=== PATIENT | female | born 1960 | race Caucasian/White ===

== ENCOUNTER → 2017-09-09 10:00 | Outpatient (CLI) | payer OTHER, SELFPAY ==
[2017-09-09 11:18] LABS: Alanine Aminotransferase 34 IU/L (9-52); Albumin 4.3 g/dL (3.5-5.0); Albumin Globulin Ratio 1.6 (1.0-2.8); Alkaline Phosphatase 71 U/L (38-126); Aspartate Aminotransferase 27 IU/L (14-36); BUN Creatinine Ratio 18.3 (6-22); Bilirubin Total 0.4 mg/dL (0.2-1.3); Blood Urea Nitrogen 11 mg/dL (7-17); Calcium 9.6 mg/dL (8.4-10.2); Carbon Dioxide 30 mmol/L (22-32); Chloride 104 mmol/L (98-107); Cholesterol 153 mg/dL (140-199); Estimated Glomerular Filt Rate > 60.0 mL/min (>60); Globulin 2.7 g/dL (1.7-4.1); Glucose 101 mg/dL (70-100); HDL Cholesterol 57 mg/dL (40-60); HEMOLYSIS < 15 (0-50); LDL Cholesterol Calculated 81 mg/dL (<100); Potassium 4.7 mmol/L (3.4-5.1); Sodium 144 mmol/L (137-145); Triglycerides 75 mg/dL (35-150)
== END ==
PROVIDERS: PCP Physician Assistant; Visit Provider Physician Assistant
DX: E78.5 Hyperlipidemia, unspecified (principal); Z01.818 Encounter for other preprocedural examination
CPT/HCPCS: 36415; 80053; 80061

== ENCOUNTER → 2017-09-23 13:25 | Outpatient (CLI) | payer OTHER, SELFPAY ==
--- NOTE | 2017-09-23 13:26 | DI.MRI.S_ITS ---
PROCEDURE: MR BRAIN (IAC) WWO CON INDICATIONS: VERTIGO TECHNIQUE: Noncontrast sagittal T1 spin echo, axial FLAIR, axial gradient echo, axial diffusion and ADC through the brain. Axial thin-slice 3D CISS, coronal TruFISP, axial T1 spin echo with fat saturation through the internal auditory canals. After the administration of contrast, thin slice axial and coronal T1 spin echo with fat saturation through the internal auditory canals, and axial T1 spin echo with fat saturation through the brain. COMPARISON: [facility], MR, BRAIN (IAC) W&WO CONTRAST, 01/19/2013, 8:07. FINDINGS: Image quality: Excellent. Cerebellopontine angles: No cerebellopontine angle masses. Inner ear structures appear normally formed. There is, however, again noted abnormal enhancement in the internal auditory canal along the course of the 7th cranial nerve with reference to the prior study from 01/19/13. The extent of this structure has very slightly enlarged, protruding very slightly into the adjacent CSF space when compared to the 2012 examination. The degree of enhancement has not increased, no new lesion elsewhere is found.. CSF spaces: Ventricles are normal in size and shape. No extra-axial fluid collections. Basal cisterns are patent. Brain: No intracranial bleeds or mass effects. Cano-white matter interface is intact. No abnormal intracranial enhancement. Diffusion weighted images demonstrate no acute ischemic insults. Brainstem appears normal. Normal intravascular flow voids are present. Skull and face: Calvarial marrow signal is normal. Orbits appear normal. Sinuses: Sinuses and mastoids are clear. IMPRESSION: Slight interval enlargement in a presumed acoustic neuroma showing contrast enhancement and slight mass effect protruding from the internal os of the internal auditory canal, but not expanding the internal auditory canal or deviating adjacent vascular or brain/brain stem structures. Dictated by: Steve Corrales M.D. on 09/23/2017 at 14:48 Approved by: Steve Corrales M.D. on 09/23/2017 at 14:53
== END ==
PROVIDERS: PCP Physician Assistant; Visit Provider Physician Assistant
DX: R42 Dizziness and giddiness (principal); R93.0 Abnormal findings on diagnostic imaging of skull and head, not elsewhere classified
CPT/HCPCS: 70553

== ENCOUNTER 2018-04-23 12:14 | Emergency (ER) | payer OTHER, SELFPAY ==
[2018-04-23 12:15] VITALS: BP 172/82; PULSE 73; RESP 16; TEMP 36.8; O2SAT 98; BMI 27.1
--- NOTE | 2018-04-23 12:31 | ED.URI ---
HPI - URI/Sore Throat <Leticia Kennedy PA-C - Last Filed: 04/23/18 18:55> General Chief Complaint: Neuro Symptoms/Deficit Stated Complaint: went to [facility], numbness in lt arm,dry mouth Time Seen by Provider: 04/23/18 12:22 Source: patient Mode of arrival: ambulatory Limitations: no limitations History of Present Illness HPI Narrative: This 58-year-old female states that she was sent in from the walk-in clinic for further evaluation of symptoms that started on Friday. She states that she had eaten a peanut butter and jelly sandwich, and a bit after that was in the car when she felt like her ?throat was closing up?, she states that it was a sensation of congestion and sticking in her throat, like she repeatedly had to swallow and catch her breath to clear it. She states that she has had this intermittently since then. She states that she is not having any trouble with fluids, but somewhat decreased appetite and afraid to eat certain foods due to that sensation. It is not painful. She states that a little while after that, she had some pins and needle sensation down the back of her left shoulder and back of the arm into the wrist area, like a line traveling down the back of her arm. She states that she did not have any pins and needles in the hand or in the front of her arm. She has not had any weakness at all in her face or extremities. She has not had any difficulty with speech. She states that in addition to these symptoms, she had some tingling in her left chest briefly on Friday night that had resolved by the time she awoke. She states that she has never had any chest pain. She states that she does not feel short of breath at all, just the sensation that she needs to take a deep breath to clear her throat sometimes. She has not had any wheezy. She has not had any recent cold symptoms, cough or fever. She has not had any nausea or vomiting. She denies any new pain or swelling in her extremities. She has not noted any rash. No recent exposures or travel. She states that she has had some fatigue this week, but the only persistent symptom has been the sticking sensation intermittently and then the recurrent tingling in the back of her arm today. She states that she does not know of any trauma to the arm or shoulder though she did work out on Friday. She states that she has felt somewhat anxious and that she takes the deep breaths to control her symptoms. She also notes that she had been taking famotidine however her acid reflux symptoms were not well controlled so she took Prilosec for 12 days, and that worked better. She went back to the famotidine on Friday, the day before symptoms started. Related Data Home Medications Medication Instructions Recorded Confirmed atorvastatin 40 mg PO BEDTIME 04/23/18 04/23/18 Previous Rx's Medication Instructions Recorded famotidine 20 mg PO BID #60 tab 07/25/17 varicella-zoster glycoE [id number] 50 mcg IM ONCE #1 each 11/25/17 adj(PF) 50 mcg/0.5 mL IM susp, kit lidocaine HCl [Lidocaine Viscous] 10 ml PO Q6-8H PRN #150 ml 04/23/18 pantoprazole 40 mg PO DAILY #30 tab 04/23/18 Allergies Allergy/AdvReac Type Severity Reaction Status Date / Time Penicillins [PENICILLINS] Allergy Severe RASH AND Verified 04/23/18 11:35 HIVES amoxicillin AdvReac Intermediate RASH Verified 04/23/18 11:35 Review of Systems <Leticia Kennedy PA-C - Last Filed: 04/23/18 18:55> Review of Systems ROS Unobtainable: All systems reviewed & are unremarkable except as noted in HPI and below PFSH <Leticia Kennedy PA-C - Last Filed: 04/23/18 18:55> Medical History Anxiety (Chronic) Cystocele (Chronic 2018) Depression (Chronic) GERD (gastroesophageal reflux disease) (Chronic) Hyperlipidemia (Chronic) Irregular periods/menstrual cycles (Chronic) Colon polyps (Resolved) Surgical History History of arthroplasty (Resolved 05/22/16) Family History Brother ID (myocardial infarction) Father ID (myocardial infarction) Mother Lung disease Sister Ovarian cancer Social History Smoking Status: Former smoker (Quit in 1998) Tobacco: How many years used: 16 second hand exposure: No alcohol intake: current (a couple glasses of white wine about 4 days a week.) substance use type: does not use Family History Brother ID (myocardial infarction) Father ID (myocardial infarction) Mother Lung disease Sister Ovarian cancer Social History Smoking Status: Former smoker Tobacco: How many years used: 16 second hand exposure: No alcohol intake: current (a couple glasses of white wine about 4 days a week.) substance use type: does not use Exam <Leticia Kennedy PA-C - Last Filed: 04/23/18 18:55> Narrative Exam Narrative: GENERAL APPEARANCE: Patient sitting comfortably, in no distress. HEENT: PERRL, EOMI, normal oropharynx. No facial asymmetry NECK/THYROID: Neck supple, submandibular glands are minimally enlarged, symmetric, trachea midline with normal swallow LUNGS: Clear to auscultation bilaterally. HEART: Regular rate and rhythm without murmur, normal S1, S2, no S3 or S4. ABDOMEN: Soft, NT, ND, + BS x 4 quadrants EXTREMITIES: No cyanosis or edema. No calf tenderness NEUROLOGIC: Alert and oriented, normal speech, gait and coordination. DERMATOLOGIC: No exanthem MUSCULOSKELETAL: Mild tenderness at the left superior and lateral shoulder bony prominences as well as over the olecranon. Full range of motion of the left upper extremity. Upper extremity strength 5/5 throughout all galvan bilaterally Initial Vital Signs Initial Vital Signs: Vital Signs Temperature 98.2 F 04/23/18 12:15 Pulse Rate 73 04/23/18 12:15 Respiratory Rate 16 04/23/18 12:15 Blood Pressure 172/82 H 04/23/18 12:15 Pulse Oximetry 98 04/23/18 12:15 <Natasha Phan DO - Last Filed: 04/24/18 08:33> Initial Vital Signs Initial Vital Signs: Vital Signs Temperature 98.2 F 04/23/18 12:15 Pulse Rate 73 04/23/18 12:15 Respiratory Rate 16 04/23/18 12:15 Blood Pressure 172/82 H 04/23/18 12:15 Pulse Oximetry 98 04/23/18 12:15 Scores <Leticia Kennedy PA-C - Last Filed: 04/23/18 18:55> HEART Score Heart Score history: Slightly Suspicious Heart Score EKG: Normal Heart Score Age: 45-64 years old Heart Score risk factors: 1-2 risk factors Heart Score troponin: < or = to normal limit Heart Score Total: 2 Course <Leticia Kennedy PA-C - Last Filed: 04/23/18 18:55> Additional Information: Patient is feeling significantly improved after Protonix and GI cocktail, states that her throat symptoms are resolved. We discussed that her symptoms are a little bit like esophageal spasm, but also seems to have some sticking sensation/dysphagia that may need further workup. There is a correlation with her stopping PPI and onset of symptoms. She will continue Protonix at home along with GI cocktail as needed and agrees to see her PCP next week. She agreed to return if any acutely worsening symptoms again so we can work up further Orders Ordered: Discontinued Medications Al Hydrox/Mg Hydrox/Simethicone 20 ml/ Lidocaine HCl 15 ml 0 ml PO NOW ONE Stop: 04/23/18 12:48 Last Admin: 04/23/18 13:04 Dose: 35 ml Pantoprazole Sodium (Protonix) 40 mg PO NOW ONE Stop: 04/23/18 12:48 Last Admin: 04/23/18 13:04 Dose: 40 mg Vital Signs - 8 hr 04/23/18 12:15 04/23/18 14:16 Temperature 98.2 F Pulse Rate 73 66 Respiratory Rate 16 16 Blood Pressure 172/82 H Blood Pressure [Right Arm] 123/66 Pulse Oximetry 98 99 <Natasha Phan DO - Last Filed: 04/24/18 08:33> Orders Ordered: Discontinued Medications Al Hydrox/Mg Hydrox/Simethicone 20 ml/ Lidocaine HCl 15 ml 0 ml PO NOW ONE Stop: 04/23/18 12:48 Last Admin: 04/23/18 13:04 Dose: 35 ml Pantoprazole Sodium (Protonix) 40 mg PO NOW ONE Stop: 04/23/18 12:48 Last Admin: 04/23/18 13:04 Dose: 40 mg Vital Signs - 8 hr 04/23/18 12:15 04/23/18 14:16 Temperature 98.2 F Pulse Rate 73 66 Respiratory Rate 16 16 Blood Pressure 172/82 H Blood Pressure [Right Arm] 123/66 Pulse Oximetry 98 99 MDM - URI/Sore Throat <Leticia Kennedy PA-C - Last Filed: 04/23/18 18:55> Lab Data Attestation: I reviewed the patient's lab results. Result diagrams: 04/23/18 13:15 04/23/18 13:15 Lab Results 04/23/18 04/23/18 Range/Units 13:15 13:15 WBC 7.0 (4.5-11.0) X10^3/uL RBC 5.16 (4.0-5.2) X10^6/uL Hgb 14.9 (12.0-16.0) g/dL Hct 43.9 (36-46) % MCV 85.0 (80-100) fL MCH 28.9 (26-34) PG MCHC 34.0 (30-36) % RDW 13.2 (11.6-14.8) % Plt Count 220 (150-400) X10^3/uL Neut % (Auto) 61.7 (50-75) % Lymph % (Auto) 29.6 (25-40) % Lamar % (Auto) 6.1 (3-14) % Eos % (Auto) 0.6 L (2-4) % Baso % (Auto) 2.0 (0-2) % Neut # (Auto) 4300 (2422-7070) /uL Lymph # (Auto) 2100 (2576-0026) /uL Lamar # (Auto) 400 (0-900) /uL Eos # (Auto) 0 (0-450) /uL Baso # (Auto) 100 (0-100) /uL Sodium 140 (137-145) mmol/L Potassium 3.9 (3.4-5.1) mmol/L Chloride 104 (98-107) mmol/L Carbon Dioxide 27 (22-32) mmol/L BUN 10 (7-17) mg/dL Creatinine 0.60 (0.52-1.04) mg/dL Estimated GFR > 60.0 (>60) mL/min BUN/Creatinine Ratio 16.7 (6-22) Glucose 88 (70-100) mg/dL Calcium 9.8 (8.4-10.2) mg/dL Total Bilirubin 0.6 (0.2-1.3) mg/dL AST 56 H (14-36) IU/L ALT 67 H (9-52) IU/L Alkaline Phosphatase 75 (38-126) U/L Total Creatine Kinase 393 H (30-135) U/L CK-MB (CK-2) 0.84 (<2.37) ng/mL CK-MB (CK-2) Rel Index 0.2 L (1.5-5.0) % Troponin I < 0.012 (0.01-0.034) ng/mL Total Protein 8.0 (6.3-8.2) g/dL Albumin 4.8 (3.5-5.0) g/dL Globulin 3.2 (1.7-4.1) g/dL Albumin/Globulin Ratio 1.5 (1.0-2.8) Lipase 75 (23-300) U/L Imaging Data Chest x-ray: Radiologist's impression: [address] [address] XRay Report Signed Patient: Barbara García [facility]#: [id number] : 1960Acct:[id number] Age/Sex: 58 / FDate of Service: 04/23/18 Loc: ED Accession Number: [id number] Procedure: XR chest 2V Ordering Provider: Leticia Kennedy P.A-C PROCEDURE: XR CHEST 2V INDICATIONS: atypical chest/throat discomfort TECHNIQUE: 2 views of the chest were acquired. COMPARISON: [facility], CHEST 2 VIEW, 07/05/2011, 13:45. [facility], SHOULDER MINIMUM 2 VIEW LEFT, 07/05/2011, 13:45. FINDINGS: Surgical changes and devices: None. Lungs and pleura: Lungs are clear. No pleural effusions or pneumothorax. Mediastinum: Mediastinal contours are normal. Heart size is normal. Bones and chest wall: 16 mm diameter ill-defined sclerotic focus within the right humeral head Soft tissues appear unremarkable. IMPRESSION: 1. No acute process. 2. 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 Dictated by: Casey Aldridge M.D. on 04/23/2018 at 13:17 Approved by: Casey Aldridge M.D. on 04/23/2018 at 13:18 ECG Data Attestation: I personally reviewed and interpreted this ECG as follows: (Normal sinus rhythm with rate 66, normal axis) <Natasha Botnick, DO - Last Filed: 04/24/18 08:33> Lab Data Lab Results 04/23/18 04/23/18 Range/Units 13:15 13:15 WBC 7.0 (4.5-11.0) X10^3/uL RBC 5.16 (4.0-5.2) X10^6/uL Hgb 14.9 (12.0-16.0) g/dL Hct 43.9 (36-46) % MCV 85.0 (80-100) fL MCH 28.9 (26-34) PG MCHC 34.0 (30-36) % RDW 13.2 (11.6-14.8) % Plt Count 220 (150-400) X10^3/uL Neut % (Auto) 61.7 (50-75) % Lymph % (Auto) 29.6 (25-40) % Lamar % (Auto) 6.1 (3-14) % Eos % (Auto) 0.6 L (2-4) % Baso % (Auto) 2.0 (0-2) % Neut # (Auto) 4300 (0512-8388) /uL Lymph # (Auto) 2100 (2294-4507) /uL Lamar # (Auto) 400 (0-900) /uL Eos # (Auto) 0 (0-450) /uL Baso # (Auto) 100 (0-100) /uL Sodium 140 (137-145) mmol/L Potassium 3.9 (3.4-5.1) mmol/L Chloride 104 (98-107) mmol/L Carbon Dioxide 27 (22-32) mmol/L BUN 10 (7-17) mg/dL Creatinine 0.60 (0.52-1.04) mg/dL Estimated GFR > 60.0 (>60) mL/min BUN/Creatinine Ratio 16.7 (6-22) Glucose 88 (70-100) mg/dL Calcium 9.8 (8.4-10.2) mg/dL Total Bilirubin 0.6 (0.2-1.3) mg/dL AST 56 H (14-36) IU/L ALT 67 H (9-52) IU/L Alkaline Phosphatase 75 (38-126) U/L Total Creatine Kinase 393 H (30-135) U/L CK-MB (CK-2) 0.84 (<2.37) ng/mL CK-MB (CK-2) Rel Index 0.2 L (1.5-5.0) % Troponin I < 0.012 (0.01-0.034) ng/mL Total Protein 8.0 (6.3-8.2) g/dL Albumin 4.8 (3.5-5.0) g/dL Globulin 3.2 (1.7-4.1) g/dL Albumin/Globulin Ratio 1.5 (1.0-2.8) Lipase 75 (23-300) U/L Discharge Plan Departure Patient Disposition: Home Clinical Impression: Esophageal spasm, Paresthesia GERD (gastroesophageal reflux disease) Qualifiers: Esophagitis presence: esophagitis presence not specified Qualified Code(s): K21.9 - Gastro-esophageal reflux disease without esophagitis Discharge Date/Time: 04/23/18 14:30 Interventions: ED Discharge Assessment Last Done: 04/23/18 14:27 Instructions: DI for Gastroesophageal Reflux Disease (GERD), DI for Esophageal Dysphagia Activity Restrictions/Additional Instructions: Your heart studies are normal today, however as we discussed, you should return to the ED immediately for further testing if you have any worsening symptoms again. Since you are feeling better, I have prescribed the same medicine that we gave you here today, pantoprazole, for your heartburn. Please take this once daily 45 min to 1 hr before dinner (it is related to Prilosec that you took previously). I have also prescribed some liquid lidocaine, which you can mix with a dose of liquid Maalox or Mylanta if you have the tightness and difficulty swallowing again to see if that is helpful. Please be sure to follow up with your PCP by next week to assess her progress and determine what other studies you might need, i.e. a swallow study or other evaluation to look for narrowing in your food pipe if you are not better. I suspect the source of the tingling in your arm is musculoskeletal since you have some soreness in the shoulder and elbow joint today, but please follow up on this with your PCP as well and avoid any activities that may exacerbate since you were at the gym on Friday before this started. Prescriptions: New pantoprazole 40 mg tablet,delayed release (DR/EC) 40 mg PO DAILY Qty: 30 RF: 0 lidocaine HCl [Lidocaine Viscous] 2 % solution 10 ml PO Q6-8H PRN (Reason: throat/esophagus tightness) Qty: 150 RF: 0 No Action varicella-zoster [id number] (PF) [Shingrix (PF)] 50 mcg/0.5 mL suspension for reconstitution 50 mcg IM ONCE Qty: 1 RF: 1 famotidine 20 mg tablet 20 mg PO BID Qty: 60 RF: 3 atorvastatin 40 mg tablet 40 mg PO BEDTIME RF: 0 Referrals: aCdence Sears PA-C [Primary Care Provider] - <Natasha Phan DO - Last Filed: 04/24/18 08:33> Cosign ED Attending [place] Attestation: I was immediately available in the department for consultation. Documentation has been reviewed. I agree with assessment and plan.
--- NOTE | 2018-04-23 12:51 | DI.RAD.S_ITS ---
PROCEDURE: XR CHEST 2V INDICATIONS: atypical chest/throat discomfort TECHNIQUE: 2 views of the chest were acquired. COMPARISON: [facility], , CHEST 2 VIEW, 07/05/2011, 13:45. [facility], , SHOULDER MINIMUM 2 VIEW LEFT, 07/05/2011, 13:45. FINDINGS: Surgical changes and devices: None. Lungs and pleura: Lungs are clear. No pleural effusions or pneumothorax. Mediastinum: Mediastinal contours are normal. Heart size is normal. Bones and chest wall: 16 mm diameter ill-defined sclerotic focus within the right humeral head Soft tissues appear unremarkable. IMPRESSION: 1. No acute process. 2. 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 Dictated by: Casey Aldridge M.D. on 04/23/2018 at 13:17 Approved by: Casey Aldridge M.D. on 04/23/2018 at 13:18
[2018-04-23] MEDS: MAG HYDROX/ALUMINUM/SIMETH SUS 20 ML, LIDOCAINE VISCOUS 2% 15 ML PO (13:04)
[2018-04-23] MEDS: PANTOPRAZOLE 20 MG TABLET 40 MG PO (13:04)
[2018-04-23 13:22] LABS: Add Manual Diff / Slide Review NO; Basophils Absolute Auto 100 /uL (0-100); Eosinophils Absolute Auto 0 /uL (0-450); Eosinophils Percent Auto 0.6 % (2-4); Hematocrit 43.9 % (36-46); Hemoglobin 14.9 g/dL (12.0-16.0); Lymphocytes Absolute Auto 2100 /uL (1100-4500); Lymphocytes Percent Auto 29.6 % (25-40); Mean Corpuscular Hemoglobin 28.9 PG (26-34); Monocytes Absolute Auto 400 /uL (0-900); Monocytes Percent Auto 6.1 % (3-14); Neutrophils Absolute Auto 4300 /uL (1500-7000); Neutrophils Percent Auto 61.7 % (50-75); Platelet Count 220 X10^3/uL (150-400); Red Blood Cell Count 5.16 X10^6/uL (4.0-5.2); Red Cell Distribution Width 13.2 % (11.6-14.8)
[2018-04-23 13:34] LABS: Alanine Aminotransferase 67 IU/L (9-52); Albumin 4.8 g/dL (3.5-5.0); Albumin Globulin Ratio 1.5 (1.0-2.8); Alkaline Phosphatase 75 U/L (38-126); Aspartate Aminotransferase 56 IU/L (14-36); BUN Creatinine Ratio 16.7 (6-22); Bilirubin Total 0.6 mg/dL (0.2-1.3); Blood Urea Nitrogen 10 mg/dL (7-17); Calcium 9.8 mg/dL (8.4-10.2); Carbon Dioxide 27 mmol/L (22-32); Chloride 104 mmol/L (98-107); Creatine Kinase 393 U/L (30-135); Estimated Glomerular Filt Rate > 60.0 mL/min (>60); Globulin 3.2 g/dL (1.7-4.1); Glucose 88 mg/dL (70-100); HEMOLYSIS 23 (0-50); Lipase 75 U/L (23-300); Potassium 3.9 mmol/L (3.4-5.1); Sodium 140 mmol/L (137-145)
[2018-04-23 13:46] LABS: Troponin I < 0.012 ng/mL (0.01-0.034)
[2018-04-23 13:49] LABS: CKMB % Relative Index 0.2 % (1.5-5.0); Creatine Kinase MB 0.84 ng/mL (<2.37)
[2018-04-23 14:16] VITALS: BP 123/66; PULSE 66; RESP 16; O2SAT 99
== END 2018-04-23 14:30 | disposition home or self-care (01) ==
PROVIDERS: Emergency Provider Internal Medicine; PCP Physician Assistant
DX: K22.4 Dyskinesia of esophagus (principal); K21.9 Gastro-esophageal reflux disease without esophagitis; R20.2 Paresthesia of skin
CPT/HCPCS: 36415; 71046; 80053; 82550; 82553; 83690; 84484; 85025; 93005; 93010; 99282; 99285; 99291

== ENCOUNTER → 2018-06-15 16:43 | Outpatient (CLI) | payer OTHER, SELFPAY ==
[2018-06-15 18:19] LABS: HEMOLYSIS < 15 (0-50)
[2018-06-15 18:24] LABS: HEMOLYSIS < 15 (0-50); Iron 48 ug/dL (37-170)
[2018-06-15 18:26] LABS: Alanine Aminotransferase 39 IU/L (9-52); Albumin 4.7 g/dL (3.5-5.0); Albumin Globulin Ratio 1.8 (1.0-2.8); Alkaline Phosphatase 73 U/L (38-126); Aspartate Aminotransferase 29 IU/L (14-36); Bilirubin Total 0.5 mg/dL (0.2-1.3); Blood Urea Nitrogen 7 mg/dL (7-17); Calcium 9.8 mg/dL (8.4-10.2); Carbon Dioxide 27 mmol/L (22-32); Chloride 100 mmol/L (98-107); Creatine Kinase 59 U/L (30-135); Estimated Glomerular Filt Rate > 60.0 mL/min (>60); Globulin 2.6 g/dL (1.7-4.1); Glucose 91 mg/dL (70-100); Potassium 3.9 mmol/L (3.4-5.1); Sodium 139 mmol/L (137-145); Total Protein 7.3 g/dL (6.3-8.2)
[2018-06-15 18:35] LABS: Percent Iron Saturation 17 % (15-50); Total Iron Binding Capacity 290 ug/dL (265-497); Transferrin 228 mg/dL (206-381)
[2018-06-15 19:14] LABS: Vitamin B12 869 pg/mL (239-931)
== END ==
PROVIDERS: PCP Physician Assistant; Visit Provider Physician Assistant
DX: R06.00 Dyspnea, unspecified (principal); R07.89 Other chest pain; R53.83 Other fatigue; R74.8 Abnormal levels of other serum enzymes
CPT/HCPCS: 36415; 80053; 82550; 82607; 83540; 83550; 83735

== ENCOUNTER → 2018-07-06 09:37 | Outpatient (CLI) | payer OTHER, SELFPAY ==
--- NOTE | 2018-07-06 09:41 | DI.RAD.S_ITS ---
PROCEDURE: FL BARIUM SWALLOW W SPEECH INDICATIONS: Severe GERD; on PPI, H2 arian, and Sulcrafate no relief TECHNIQUE: Examination was conducted in conjunction with speech pathology per standard protocol. In the lateral projection, filming was performed of the patient swallowing. AP projection filming may also be performed with patient swallowing. COMPARISON: None. FINDINGS: Function: The oral preparatory phase appears normal, with proper containment. The subsequent oral propulsive phase, pharyngeal phase, and esophageal phase of swallowing also appear normal with all proffered substances. No laryngotracheal penetration or aspiration. No pathologic vallecular pooling. Morphology: No cricopharyngeal bar is identified. No cervical esophageal webs. No Zenker's diverticulum. No strictures. IMPRESSION: Normal examination. Please also refer to the dedicated speech therapy report that will be independently generated. Dictated by: Steve Corrales M.D. on 07/06/2018 at 11:20 Approved by: Steve Corrales M.D. on 07/06/2018 at 11:20
--- NOTE | 2018-07-06 11:08 | ST.SWALLOW ---
Care Team Visit Care Team Role Provider Type Other Providers Specialty: Address: Phone: Fax: Email: Ryder Khan MD Family Provider Non-Staff Specialty: Internal Medicine Address: [address] [facility] [address], [address] Email: Cadence Sears PA-C Attending Provider Advanced Environmental Construction Engineer Primary Care Provider Specialty: Medical Address: [address] [place] [address] [address], [place], [address] Email: [email or web address] Modified Barium Swallow Study ENGINEERING PROFESSOR Modified Barium Swallow Study Start: 07/06/18 10:36 Freq: Status: Active Protocol: Document 07/06/18 10:37 MRM (Rec: 07/06/18 11:08 MRM [id number]) Modified Barium Swallow Study Total Time Visit Start Time 10:00 Visit Stop Time 10:30 Total Visit Minutes 30 Referral Referring Physician Cadence Sears PA-C Reason for Referral Dysphagia Setting Setting Outpatient Care Patient Information Identification Type Name Patient History Patient is a 58 year old female referred for an outpatient clinical swallow evaluation by Dr Sears for dysphagia secondary to significant GERD. Patient reported that she began to experience exaggerated GERD symptoms in March 2018 with increased sensation of indegestion, globus sensation and thick secretions. She was prescribed 60mg of dexilant to be taken x1 daily, which she stated, has caused some improvement, but her symptoms are still present. She also initiated a strict GERD diet ( 5 small meals a day, bland foods, sleeping upright, no late night eating, etc), whcih has also caused some relief, but has not totally resolved her symptoms. However, since initiation of this diet, she has lost 30+ pounds (in less than 3 months). She had an endoscopy on April 2018 which revealed esophageal inflammation. She reported that after this endoscopy, she was diagnosed with pneumonia. She has also seen an ENT who performed flexible endoscopy for evaluation of the vocal folds. She reported that the ENT observed irritation/ inflammation of the vocal folds and subsequently recommended a referral for outpatient voice therapy. She reported having difficulty swallowing pills at times and occasional expectoration of food after gargling with salt water. With this increase in GERD symptoms, she has also experienced increased anxiety, worrying that she will choke. No recent neurological changes , no prior difficulties swallowing. Subjective Observations Patient arrived on time for her study with no family present. Able to provide thorough medical history. Patient Positioning Position View Lateral Imaging Lateral View Textures Administered Trials Presented Thin Liquid via Cup Dysphagia Blenderized Textures Mechanical Soft Textures Regular Textures Barium Tablet Oral Phase Source: MBSIMP (TM) (C) Bolus Specific Scoring Grid Lip Closure WFL Tongue Control During Bolus Hold WFL Bolus Prep/Mastication WFL Bolus Transport/Lingual Motion WFL A/P Lingual Propulsion Delay No Oral Residue Minimal Impairment Residue Clearing WFL Nasal Regurgitation No Additional Oral Phase Observations Trace lingual residue observed after trials of thin liquid and puree textures, but resolved with additional swallows. Pharyngeal Phase Source: MBSIMP (TM) (C) Bolus Specific Scoring Grid Delayed Initiation of Pharyngeal Swallow No Soft Palate Elevation WFL Tongue Base Strength/Range of Motion Mild Impairment Residue Along the Tongue Base Yes: Trace residue along base of tongue with thin liquids Clearance of Residue Along Tongue Base WFL Laryngeal Elevation WFL Anterior Hyoid Movement WFL Epiglottic Range of Motion Minimal Impairment Vallecular Residue Yes: Mild vallecular residue observed with thin liquids and puree textures Clearance of Vallecular Residue Minimal Impairment Laryngeal Vestibular Closure WFL Pharyngeal Stripping Wave Minimal Impairment Pharyngeal Contraction Minimal Impairment Posterior Pharyngeal Wall Residue Yes: Trace amount observed with thin liquids Clearance of Posterior Pharyngeal Wall Minimal Impairment Residue Upper Esophageal Sphincter Opening Minimal Impairment Residue in the Pyriform Sinuses Yes: Trace amount observed with thin liquids and puree textures Clearance of Residue in the Pyriform Minimal Impairment Sinuses Esophageal Clearance Upright Position Minimal Impairment Pharyngoesophageal Backflow Observed No A/P View Esophageal Observations Esophageal Function No significant esophageal findings. Please see Radiologist's report for further details. Clinical Impressions Dysphagia Type Mild oropharyngeal dysphagia Findings Patient presents with mild oropharyngeal dysphagia secondary to mildly reduced epiglottic inversion with mildly reduced pharygneal stripping wave and mildly reduced UES opening, allowing mild buildup of pharyngeal residue in valleculae, along posterior pharyngeal wall and in pyriform sinuses. Able to resolve with additional dry swallows or trials of more solid textures such as fruit and/or daysi cracker. Trials presented: Thin liquid via cup in single and consecutive sips, puree texture, mixed fruit, regular daysi cracker, barium tablet. No penetration, no aspiration observed throughout study. Patient able to tolerate mixed fruit, regular daysi cracker and solid barium tablet in water without difficulty. Observed mild residue along lingual surface, in the valleculae, along the posterior pharynegeal wall and in the pyriform sinsues after trials of thin liquids and puree textures. However, able to clear with additional dry swallows or trials of more solid textures. Residue along oropharyngeal structures suspected due to texture of barium as well as mildly reduced strength. Rehabilitation Potential Excellent Patient Appropriate for Therapy Yes: Outpatient voice therapy and dysphagia therapy Recommendations Diet Liquids Order Thin Diet Order Regular Medication Recommendation As Tolerated Comments Able to tolerate whole in thin liquid, but also educated regarding carriers Aspiration Precautions Recommended Precautions Upright at 90 Degrees Small Bites/Sips Effortful Swallow Treatment Plan Therapy Recommendations Outpatient Speech Therapy Base of Tongue Exercises Compensatory Strategy Education GERD/Vocal Hygiene Education Recommended Referrals Primary Care Physician Compensatory Strategies Recommendations Double Swallow Small Bites and Sips Alternate Liquids/Solids Short Term Goals Patient will attend outpatient speech therapy targeting mild oropharyngeal dysphagia to improve base of tongue strength for reduced lingual residue and improved epiglottic inversion to reduce vallecular residue, as well as pharyngeal contraction exercises to improve pharyngeal clearance. Patient will attent outpatient voice therapy, per ENT recommendation, to address reduced vocal quality secondary to GERD. Concrete Pouring Supervisor Goals Patient will tolerate the safest, least restrictive diet without overt s/s of aspiration. Patient will improve in vocal quality following participation in outpatient speech therapy. Placement Recommendation After Discharge Home
== END ==
PROVIDERS: Family Provider Internal Medicine Gastroenterology; PCP Physician Assistant; Visit Provider Physician Assistant
DX: K21.9 Gastro-esophageal reflux disease without esophagitis (principal); R13.10 Dysphagia, unspecified
CPT/HCPCS: 74230; 92611

== ENCOUNTER → 2018-07-16 09:56 | Outpatient (CLI) | payer OTHER, SELFPAY ==
--- NOTE | 2018-07-16 14:31 | DIET.PN ---
Met for initial nutrition consultation. Is here because of unintentional wt loss; pt states r/t GERD and not being able to eat. Is very anxious w/many questions. Has been getting information from internet. States GERD, asthma and anxiety all flared up at once 3 months ago. Current diet: severely limited- yesterday ate 4 shrimp and some quinoa for lunch and again for dinner. Avoids anything with a pH <6. DX: unintentional wt loss, GERD HX: Anxiety, panic attacks Ht: 63 Wt 3 mo ago: 158# Today: 124# BMI: 22 Meds include: Buspirone HCL, Lorazepam, Dexilant Assessment: Very anxious woman. I believe this plays a big part in her GI discomfort and difficulty breathing, which she states is asthma. Has limited her diet to the point of being inadequate in energy, many vitamins and minerals. Has lost 6% wt in 3 months. Intervention: Reviewed food lists to avoid - foods that cause increase GI acid production and foods that may irritate GI/esophagus. Provided list of foods she can eat, as well as some menus to help guide choices. Provided education on stress relief and deep breathing with emphasis on breathing OUT slowly. Provided education on the connection between mind and GI tract. Plan: Use sample menus as guide. Eat 3 small meals and 2-3 snacks daily. Incorperate some high protein, high coleen foods. Is scheduled to see a GI specialist on 07/21. Will f/u after that.
== END ==
PROVIDERS: Family Provider Internal Medicine Gastroenterology; PCP Physician Assistant; Visit Provider Physician Assistant
DX: K21.9 Gastro-esophageal reflux disease without esophagitis (principal); R63.4 Abnormal weight loss
CPT/HCPCS: 97802

== ENCOUNTER → 2018-08-28 09:18 | Outpatient (CLI) | payer OTHER, SELFPAY ==
[2018-08-28 11:06] LABS: Cholesterol 228 mg/dL (140-199); HDL Cholesterol 40 mg/dL (40-60); LDL Cholesterol Calculated 166 mg/dL (<100); Triglycerides 110 mg/dL (35-150)
[2018-08-28 11:09] LABS: High Sensitivity CRP - Cardiac 0.8 mg/L (1.0-3.0)
[2018-08-28 11:21] LABS: Free T4, Direct Thyroxine 1.11 ng/dL (0.78-2.19)
[2018-08-28 11:36] LABS: Cancer Antigen 125 22 U/mL (0-35)
[2018-08-30 12:44] LABS: Homocysteine 5.7 umol/L (< 10.4)
[2018-09-01 15:30] LABS: Triiodothyronine T3 Reverse 18 ng/dL (8-25)
== END ==
PROVIDERS: PCP Physician Assistant; Visit Provider Obstetrics & Gynecology
DX: R63.4 Abnormal weight loss (principal); E78.5 Hyperlipidemia, unspecified; Z51.81 Encounter for therapeutic drug level monitoring
CPT/HCPCS: 36415; 80061; 82306; 83090; 84439; 84482; 86140; 86304

== ENCOUNTER 2018-09-04 13:30 | Outpatient (RCR) | payer OTHER, SELFPAY ==
--- NOTE | 2018-07-31 15:47 | ST.OPIE ---
Provider Information Visit Care Team Role Provider Type Cadence Sears PA-C Attending Provider Advanced Destaticizer Feeder Primary Care Provider Specialty: Medical Address: [address] [place] [address], [id number] Email: [email or web address] Speech-Language Pathology Initial Evaluation TABLE FILLER Clinical Instructor Line Start: 07/31/18 12:34 Freq: Status: Active Protocol: Document 07/31/18 15:32 LNK (Rec: 07/31/18 15:33 LNK [id number]) Clinical Instructor Signature Clinical Instructor Clinical Instructor Yes: Melissa Joseph, PhD , [facility]-TABLE FILLER TABLE FILLER Clinical Swallow Evaluation Start: 07/31/18 12:34 Freq: Status: Active Protocol: Document 07/31/18 12:35 MG (Rec: 07/31/18 13:00 MG [id number]) Clinical Swallow Evaluation Session Time Visit Start Time 11:30 Visit Stop Time 12:30 Total Visit Minutes 60 Visit Information Plan of Care Dates 07/31/18-10/31/18 Insurance Information [facility] Referral Referring Physician Dr. Sears Reason for Referral GERD Setting Assessment Location Outpatient Care Visit Type Note Type Initial Evaluation Next Note Type Next Note Type Treatment Note Patient Information Identification Type Name History Barbara García is a 58 year old female referred for an outpatient clinical swallow evaluation by Dr Sears for dysphagia secondary to significant GERD. Barbara reported that she began to experience GERD symptoms in March 2018 with increased sensation of indegestion, globus sensation and thick secretions. Barbara currently takes 60mg of Dexilant x2 daily, which she stated on June 23, 2018. Barbara is also on a strict GERD diet (5 small meals a day, bland foods, sleeping upright, no late night eating, etc). Barbara has reportedly lost 30+ pounds in 3 months. She had an endoscopy on April 2018 which revealed esophageal inflammation. She has also seen an ENT who performed flexible endoscopy for evaluation of the vocal folds. Barbara reported that the ENT observed irritation/ inflammation of the vocal folds and subsequently recommended a referral for outpatient voice therapy. With this increase in GERD symptoms, she has experienced increased anxiety, worrying that she will choke. Barbara reported that she did not begin to have swallowing problems until she started having GERD symptoms. Evaluation Liquids Trialed Thin Solids Trialed Puree Dysphagia Mechanical Regular Administration Type Cup Single Sip Cup Consecutive Sips Self-Feeding Oral Impairment Mildly Impaired Oral Strategies Upright at 90 degrees Double Swallow Controlled Bite/Sip Size Alternate Liquids/Solids Oral Phase Comments Per MBSS: Trace lingual residue observed after trials of thin liquid and puree textures, but resolved with additional swallows. Pharyngeal Impairment Mildly Impaired Pharyngeal Strategies Sitting Upright (90 deg) Double Swallow Effortful Swallow Small Bites and Sips Alternate Liquids/Solids Pharyngeal Phase Comments Per MBSS: Mild vallecular residue observed on thin liquids and pureed textures. Epiglottic ROM was noted to be minimally impaired as well. Findings Dysphagia Type Mild oropharyngeal dysphagia Rehabilitation Potential Good Impressions Per MBSS: Patient presents with mild oropharyngeal dysphagia secondary to mildly reduced epiglottic inversion with mildly reduced pharygneal stripping wave and mildly reduced UES opening, allowing mild buildup of pharyngeal residue in valleculae, along posterior pharyngeal wall and in pyriform sinuses. Able to resolve with additional dry swallows or trials of more solid textures such as fruit and/or daysi cracker. No penetraion or aspiration occured throughout study. Student TABLE FILLER spent time reviewing MBSS results with Barbara. Student TABLE FILLER went over HEP which included the following exercises for dysphagia treatment: betsy, effortful swallow, and base of tongue exercises. Barbara was in agreement with the program and student TABLE FILLER observed her doing exercises in treatment to make sure she was following the steps correctly. Student TABLE FILLER provided education around the swallowing mechanism, GERD vs LPR, safe swallow strategies, and the affects of everything on the voice. Barbara mentioned complaints of her voice quality and that it has changed since she started developing GERD. Student TABLE FILLER reviewed a vocal hygiene program with Barbara and it appeared that Barbara follows a lot of the guidelines provided (e.g., keep hydrated, talk softer, vocal breaks). Student TABLE FILLER walked Barbara through deep belly breathing in order to improve respiratory support while speaking as Barbara noted that she runs out of air when talking. Student TABLE FILLER encouraged Barbara to continue deep belly breathing exercises along with HEP for dysphagia. Barbara appears motivated to follow through with the program. Barbara would benefit from dysphagia and voice therapy in order to reduce globus sensations and improve vocal quality. Diet Recommendations Liquids Order Thin Diet Order Regular Medication Recommendations As Tolerated Additional Dietary Needs Controlled Sips Aspiration Precautions Recommended Precautions Upright at 90 Degrees Alternate Liquids/Solids Frequent Rest Periods Small Bites/Sips Effortful Swallow Double Swallow Additional Precautions Betsy and base of tongue exercises Treatment Plan Placement Recommendations after Home Discharge Appropriate for Therapy Yes Therapy Recommendations Barbara should receive ST in dysphagia and voice due to noted mild oropharyngeal dysphagia from MBSS performed on 07/06/18 and complaints of voice and irritation noted via ENT. Dysphagia Goals Patient will tolerate the least restrictive diet without showing overt s/sx of aspiration. Patient will report improved in vocal quality directly related to vocal hygeine program follow through and voice therapy strategies.
--- NOTE | 2018-07-31 15:48 | ST.OPPOC ---
Care Team Visit Care Team Role Provider Type Cadence Sears PA-C Attending Provider Advanced Brown Stock Washer Primary Care Provider Address: [address] [place] [address], [id number] Speech Pathology Plan of Care BLUNGER MACHINE OPERATOR Clinical Instructor Line Start: 07/31/18 12:34 Freq: Status: Active Protocol: Document 07/31/18 15:32 LNK (Rec: 07/31/18 15:33 LNK [id number]) Clinical Instructor Signature Clinical Instructor Clinical Instructor Yes: Melissa Joseph, PhD , CCC-BLUNGER MACHINE OPERATOR Speech Pathology Plan of Care Plan of Care Dates 07/31/18-10/31/18 Rehabilitation Potential Good Please Sign and Return: I have reviewed this Plan of Care and certify that the skilled therapy services above are required to meet the patient?s needs. Physician Signature Date Printed Name and Credentials Clinical Instructor Signature Printed Name and Credentials
--- NOTE | 2018-09-04 16:16 | ST.OPTN ---
Care Team Visit Care Team Role Provider Type Cadence Sears PA-C Attending Provider Advanced Supervisor Cemetery Workers Primary Care Provider Address: [address] [place] [address], [id number] VP SITE Treatment Note VP SITE Clinical Instructor Line Start: 07/31/18 12:34 Freq: Status: Active Protocol: Document 07/31/18 15:32 LNK (Rec: 07/31/18 15:33 LNK [id number]) Clinical Instructor Signature Clinical Instructor Clinical Instructor Yes: Melissa Joseph, PhD , [facility]-VP SITE VP SITE Treatment Note Start: 09/04/18 15:26 Freq: Status: Active Protocol: Document 09/04/18 15:33 LNK (Rec: 09/04/18 16:12 LNK [email or web address]) Speech Pathology Treatment Note Session Time Visit Start Time 01:30 Visit Stop Time 14:30 Total Visit Minutes 60 Visit Information Visit Number Plan of Care Dates 07/25/18-10/25/18 Setting Treatment Setting Outpatient Care Visit Type Note Type Treatment Note General Information General Information Barbara García is a 58 year old female referred for an outpatient clinical swallow evaluation on 07/25/[address] Sears for dysphagia secondary to significant GERD. Brabara reported that she began to experience GERD symptoms in March 2018 with increased sensation of indigestion, globus sensation and thick secretions. Dysphagia and voice therapies were recommended. Barbara is seen today for the first session since her assessment to review her HEP and to make modifications as indicated. Subjective Identification Type Name Identification Reconciled With Intake Sheet Chief Complaint(s) Other Additional Areas of Concern GERD- related swallowing/ burping/voice Rehab Expectation/Goals: Patient Goals Be able to control her GERD/ voice Patient Knowledge/Awareness of VP SITE Role Good in Treatment Patient/Caregiver Compliance with Home Excellent Exercise Program Objective Short Term Goals Improved swallow function via swallowing exercises to improve linguapharyngeal strength and increase swallowing safety. Improved vocal quality secondary to GERD diet and lanryngopharyngeal exercises. Underwriter Solicitation Director Goals Reduction in GERD-related symptoms: globus, burping, fatigue in throat area Treatment Activities Reviewed Barbara's evaluation report with Barbara and discussed her HEP. She noted that she has been doing her HEP daily with minimal change in her symptoms. She noted that her swallowing and voice are not the problem; however her GERD and sense of globus and tension remain the same as when she was initially assessed. Review of s/sx related to her anxiety, globus sensation, history of GERD and hx of pneumonia all withing the past 6 months. She reports that she has now lost~40 pounds in 6 months, unintentionally. Additionally, she reported that her GI physician called her yesterday re: abdominal imaging recently completed. Her physician is scheduled to see her on Friday09/07/18 to discuss those results. Reviewed the laryngopharyngeal and gastroesophageal anatomy and then reviewed the diagnoses of laryngopharyngeal reflux (LPR) vs gastroesophageal reflux (GERD) . I noted that her sense of tightness/globus could be the result of LPR as opposed to GERD. She has not has any Ph tests to confirm or rule out LPR. Recommended she be referred to ENT at either [facility] (Dr. Magdalena West, ENT, Department of Otolaryngology) or at [facility] (Dr. Higgins, ENT or Dr Ocampo, ENT, Department of Otolaryngology) for a Ph test for LPR. Assessment Patient Response to Treatment Excellent Assessment of Improvement In reviewing Barbara's ST assessments and reports it appears that the difficulty she is experiencing is possibly driven by her anxiety , which increases her GI response and thereby contributes to acidity within the laryngopharyngeal area, creating tightness and a sensation of globus. As a result of the tightness, her anxiety increases. Of note, while Barbara was in the session (60 minutes), she was burping approximately every 10-15 seconds. She reports an increase in muscular tension in her neck, followed by a burp, which eases the tension. I recommended that she discuss this burping with her physician/GI specialist. At this point continued ST services are not indicated as Barbara's concerns appear to be GI and/or anxiety related. This was discussed with Barbara, who agreed. As her medical treatment evolves, she may contact this clinic again for ST services. Will discharge at this time. Patient/Caregiver Understanding Excellent Plan Amount of Therapy Recommended No Further Therapy Frequency of Treatment No Further Therapy Therapy Recommendations Discharge from Speech Therapy
--- NOTE | 2018-09-04 16:19 | ST.OPDS ---
Care Team Visit Care Team Role Provider Type Cadence Sears PA-C Attending Provider Advanced Forensic Dna Analyst Primary Care Provider Address: [address] [place] [address], [address] DELIVERY TRUCK DRIVER Treatment Note DELIVERY TRUCK DRIVER Clinical Instructor Line Start: 07/31/18 12:34 Freq: Status: Active Protocol: Document 07/31/18 15:32 LNK (Rec: 07/31/18 15:33 LNK [id number]) Clinical Instructor Signature Clinical Instructor Clinical Instructor Yes: Melissa Joseph, PhD , [facility]-DELIVERY TRUCK DRIVER DELIVERY TRUCK DRIVER Treatment Note Start: 09/04/18 15:26 Freq: Status: Active Protocol: Document 09/04/18 16:18 LNK (Rec: 09/04/18 16:19 LNK [email or web address]) Speech Pathology Treatment Note Session Time Visit Start Time 01:30 Visit Stop Time 14:30 Setting Treatment Setting Outpatient Care Visit Type Note Type Discharge Summary General Information General Information Barbara García is a 58 year old female referred for an outpatient clinical swallow evaluation on 07/25/[address] Sears for dysphagia secondary to significant GERD. Barbara reported that she began to experience GERD symptoms in March 2018 with increased sensation of indigestion, globus sensation and thick secretions. Dysphagia and voice therapies were recommended. Barbara is seen today for the first session since her assessment to review her HEP and to make modifications as indicated. Objective Treatment Activities Reviewed Barbara's evaluation report with Barbara and discussed her HEP. She noted that she has been doing her HEP daily with minimal change in her symptoms. She noted that her swallowing and voice are not the problem; however her GERD and sense of globus and tension remain the same as when she was initially assessed. Review of s/sx related to her anxiety, globus sensation, history of GERD and hx of pneumonia all withing the past 6 months. She reports that she has now lost~40 pounds in 6 months, unintentionally. Additionally, she reported that her GI physician called her yesterday re: abdominal imaging recently completed. Her physician is scheduled to see her on Friday09/07/18 to discuss those results. Reviewed the laryngopharyngeal and gastroesophageal anatomy and then reviewed the diagnoses of laryngopharyngeal reflux (LPR) vs gastroesophageal reflux (GERD) . I noted that her sense of tightness/globus could be the result of LPR as opposed to GERD. She has not has any Ph tests to confirm or rule out LPR. Recommended she be referred to ENT at either [facility] (Dr. Magdalena West, ENT, Department of Otolaryngology) or at [facility] (Dr. Higgins, ENT or Dr Ocampo, ENT, Department of Otolaryngology) for a Ph test for LPR. Assessment Assessment of Improvement In reviewing Barbara's ST assessments and reports it appears that the difficulty she is experiencing is possibly driven by her anxiety , which increases her GI response and thereby contributes to acidity within the laryngopharyngeal area, creating tightness and a sensation of globus. As a result of the tightness, her anxiety increases. Of note, while Barbara was in the session (60 minutes), she was burping approximately every 10-15 seconds. She reports an increase in muscular tension in her neck, followed by a burp, which eases the tension. I recommended that she discuss this burping with her physician/GI specialist. At this point continued ST services are not indicated as Barbara's concerns appear to be GI and/or anxiety related. This was discussed with Barbara, who agreed. As her medical treatment evolves, she may contact this clinic again for ST services. Will discharge at this time. Plan Amount of Therapy Recommended No Further Therapy Frequency of Treatment No Further Therapy Therapy Recommendations Discharge from Speech Therapy
== END 2018-09-17 09:30 | disposition home or self-care (01) ==
LOC: SP 13:30
PROVIDERS: PCP Physician Assistant; Visit Provider Physician Assistant
DX: K21.9 Gastro-esophageal reflux disease without esophagitis (principal)
CPT/HCPCS: 92507; 92610

== ENCOUNTER → 2018-09-21 13:05 | Outpatient (CLI) | payer OTHER, SELFPAY ==
--- NOTE | 2018-09-21 13:07 | DIET.PN ---
Dietary Progress Note Assessment: f/u since June appt 124#, now 115#, pt has doubled food intake, is seeing counselor and learning center instructor as support. GI doc put pt on low FODMAP (and GF/DF) diet 2w ago for total of 6w. Pt is following diet, not seeing benefits or wt gain yet. HT: started 158# in Mar WT: 115# down 9 pounds from 2 mo ago. BMI: 20.2 Mariajose Munoz on is learning center instructor, gave pt these supps: takes pro powder supp 2 scoops 1-2x/d (4 weeks) takes Spectrazyme digestive enzyme with every meal Mag Citrate at night Omega3 glutamine I feel these are beneficial and won't hurt pt moving forward. Also: Benefiber prebiotic med for GERD dexilant in May 2018, working c GI doc to ramp down as tolerated. Pt is having difficulty with smells- things too strong, now eating 5 meals per day but feels its a chore, desires a meal plan for what to eat. Pt looking into CBD to reduce anxiety and help c appetite. Describes GERD as feeling like something is stuck in her throat, not heartburn. Interventions: Educated pt on low-FODMAP foods, why we do this, and when to stop. Provided Low-FODMAP meal guide. Discussed reintroduction of FODMAP categories with printed protocol from [facility]. Reassured pt concerns, encouraged added olive oil to meals, more frequent avocado (within fodmap), and other higher calorie foods, even if in small quantities to support weight maintenance or gain. Monitoring/Evaluations: Pt will call to schedule f/u c RD if having trouble c reintroduction protocol or to create plan once low-FODMAP diet is complete if needed. RD encouraged pt to contact her PCP for workup if wt drops under 110#.
== END ==
PROVIDERS: PCP Physician Assistant; Visit Provider Physician Assistant
DX: K21.9 Gastro-esophageal reflux disease without esophagitis (principal); R63.4 Abnormal weight loss
CPT/HCPCS: 97802

== ENCOUNTER 2018-09-24 09:04 | Emergency (ER) | payer OTHER, SELFPAY ==
[2018-09-24 09:30] VITALS: BP 120/70; PULSE 81; RESP 20; TEMP 36.9; O2SAT 100; BMI 20.3
[2018-09-24 10:00] VITALS: BP 126/65; PULSE 75; RESP 19; O2SAT 98
--- NOTE | 2018-09-24 10:17 | ED.ABDPAIN ---
HPI - Abdominal Pain General Chief Complaint: Urogenital-Female Stated Complaint: pressure on anus Time Seen by Provider: 09/24/18 10:17 Source: patient Mode of arrival: ambulatory Limitations: no limitations History of Present Illness HPI narrative: Patient is a 58-year-old female who presents with pressure in her rectum ongoing for least 1 month. She has been having regular bowel movements, no abdominal pain no nausea vomiting or sweats. However she is having extreme pain in her rectum unable to sit down. She does have hemorrhoids but they are not bleeding. MD complaint: abdominal pain Related Data Home Medications Medication Instructions Recorded Confirmed nortriptyline 10 mg capsule 10 mg PO BEDTIME 08/28/18 09/24/18 Previous Rx's Medication Instructions Recorded varicella-zoster glycoE [id number] 50 mcg IM ONCE #1 each 11/25/17 adj(PF) 50 mcg/0.5 mL IM susp, kit albuterol sulfate HFA 90 2 puff INHALATION Q4-6H PRN #18 05/26/18 mcg/actuation aerosol inhaler gram dexlansoprazole 60 mg 60 mg PO BID #60 cap 07/16/18 capsule,biphase delayed release prednisone 20 mg PO DAILY #5 tab 09/24/18 Allergies Allergy/AdvReac Type Severity Reaction Status Date / Time Penicillins [PENICILLINS] Allergy Severe RASH AND Verified 06/24/18 15:36 HIVES amoxicillin AdvReac Intermediate RASH Verified 06/24/18 15:36 epinephrine AdvReac Intermediate Anxiety Verified 06/24/18 15:36 attack Review of Systems Review of Systems GENERAL: Denies chills, fatigue, malaise, fever, sweats, travel HEENT: Denies sinus pain, ear pain, sore throat, difficulty swallowing, neck pain RESPIRATORY: Denies dyspnea, cough, wheezing, hemoptysis, sputum. CARDIOVASCULAR: Denies chest pain, palpitations, orthopnea, edema GASTROINTESTINAL: See HPI : Denies dysuria, frequency, incontinence, hematuria, urinary retention, flank pain. MUSCULOSKELETAL: Denies weakness, joint pain, or bony pain SKIN: No rash, no erythema, no pruritus NEUROLOGIC: Denies weakness, dizziness, headache, numbness, change in speech, confusion PSYCHIATRIC: No concerning psychosocial issues. 12 point review of systems is negative except for those stated above and HPI [facility] Medical History Anxiety (Chronic) Cystocele (Chronic 2018) Depression (Chronic) GERD (gastroesophageal reflux disease) (Chronic) Hyperlipidemia (Chronic) Irregular periods/menstrual cycles (Chronic) Colon polyps (Resolved) Surgical History History of arthroplasty (Resolved 05/22/16) Family History Brother [place] (myocardial infarction) Father [place] (myocardial infarction) Mother Lung disease Sister Ovarian cancer Social History Smoking Status: Former smoker Tobacco: How many years used: 16 second hand exposure: No alcohol intake: current substance use type: does not use Family History Brother [place] (myocardial infarction) Father [place] (myocardial infarction) Mother Lung disease Sister Ovarian cancer Social History Smoking Status: Former smoker Tobacco: How many years used: 16 second hand exposure: No alcohol intake: current substance use type: does not use Exam Initial Vital Signs Initial Vital Signs: Vital Signs Temperature 98.4 F 09/24/18 09:30 Pulse Rate 81 09/24/18 09:30 Respiratory Rate 20 09/24/18 09:30 Blood Pressure 120/70 09/24/18 09:30 Pulse Oximetry 100 09/24/18 09:30 GENERAL: Well-appearing, well-nourished and in no acute distress. HEENT: Head atraumatic,EOMI, pupils reactive, face symmetric, moist mucous membranes CARDIOVASCULAR: Regular rate and rhythm without murmurs, rubs or gallops. RESPIRATORY: Breath sounds equal bilaterally, no wheezes rales or rhonchi. ABDOMEN: Soft, nontender. Normoactive bowel sounds all 4 quadrants. No guarding or rebound. RECTAL: External hemorrhoids nonthrombosed no bleeding extreme tenderness about 6 o'clock position no rectocele. EXTREMITIES: Normal range of motion, no clubbing or edema. Neurovascularly intact NEUROLOGICAL: Alert and oriented x4.Normal gait and speech. Cranial nerves II through XII grossly intact. SKIN: Warm, dry, no laceration, no petechiae, no rashes or lesions. Course Orders Ordered: ED Orders 09/24/18 10:35 Complete Blood Count AUTO DIFF Stat Comprehensive Metabolic Panel Stat Lipase Stat 09/24/18 11:12 CT abdomen pelvis w con Stat Discontinued Medications Ketorolac Tromethamine (Toradol) 30 mg IV NOW ONE Stop: 09/24/18 11:40 Last Admin: 09/24/18 11:42 Dose: 30 mg Vital Signs - 8 hr 09/24/18 09:30 09/24/18 10:00 09/24/18 11:00 Temperature 98.4 F Pulse Rate 81 75 71 Respiratory Rate 20 19 20 Blood Pressure 120/70 Blood Pressure [Left Arm] 126/65 107/92 H Pulse Oximetry 100 98 99 09/24/18 11:55 09/24/18 13:30 Temperature Pulse Rate 71 76 Respiratory Rate 18 17 Blood Pressure Blood Pressure [Left Arm] 124/73 114/66 Pulse Oximetry 98 98 MDM - Abdominal Pain Lab Data Attestation: I reviewed the patient's lab results. Result diagrams: 09/24/18 10:35 09/24/18 10:35 Lab Results 09/24/18 09/24/18 Range/Units 10:35 10:35 WBC 6.2 (4.5-11.0) X10^3/uL RBC 5.12 (4.0-5.2) X10^6/uL Hgb 14.5 (12.0-16.0) g/dL Hct 43.6 (36-46) % MCV 85.1 (80-100) fL MCH 28.3 (26-34) PG MCHC 33.3 (30-36) % RDW 14.1 (11.6-14.8) % Plt Count 203 (150-400) X10^3/uL Neut % (Auto) 56.5 (50-75) % Lymph % (Auto) 36.9 (25-40) % [place] % (Auto) 6.0 (3-14) % Eos % (Auto) 0.4 L (2-4) % Baso % (Auto) 0.2 (0-2) % Neut # (Auto) 3500 (0598-2587) /uL Lymph # (Auto) 2300 (6160-9478) /uL [place] # (Auto) 400 (0-900) /uL Eos # (Auto) 0 (0-450) /uL Baso # (Auto) 0 (0-100) /uL Sodium 144 (137-145) mmol/L Potassium 3.7 (3.4-5.1) mmol/L Chloride 106 (98-107) mmol/L Carbon Dioxide 28 (22-32) mmol/L BUN 12 (7-17) mg/dL Creatinine 0.50 L (0.52-1.04) mg/dL Estimated GFR > 60.0 (>60) mL/min BUN/Creatinine Ratio 24.0 H (6-22) Glucose 121 H (70-100) mg/dL Calcium 9.4 (8.4-10.2) mg/dL Total Bilirubin 0.3 (0.2-1.3) mg/dL AST 19 (14-36) IU/L ALT 25 (9-52) IU/L Alkaline Phosphatase 60 (38-126) U/L Total Protein 7.0 (6.3-8.2) g/dL Albumin 4.3 (3.5-5.0) g/dL Globulin 2.7 (1.7-4.1) g/dL Albumin/Globulin Ratio 1.6 (1.0-2.8) Lipase 84 (23-300) U/L Point of care testing: Urine Dip Bedside Urine Glucose Negative Bedside Urine Bilirubin - Negative Bedside Urine Ketone - Negative Urine Specific [place] 1.015 Bedside Urine Occult Blood - Negative Bedside Urine pH 7.5 Bedside Urine Protein - Negative Bedside Urine Urobilinogen - Negative Bedside Urine Nitrite - Negative Bedside Urine Leukocytes - Negative Esterase Imaging Data CT scan - abdomen: Radiologist's impression: PROCEDURE: CT ABDOMEN PELVIS W CON INDICATIONS: severe rectal pain. ? abscess TECHNIQUE: After the administration of oral and intravenous contrast, 5 mm thick sections acquired from the diaphragms to the symphysis. 5 mm thick coronal and sagittal reformats were performed. For radiation dose reduction, the following was used: automated exposure control, adjustment of mA and/or kV according to patient size. COMPARISON: [facility], , ABDOMEN COMPLETE, 12/12/2006, 11:34. FINDINGS: Image quality: Excellent. ABDOMEN: Lung bases: Lingular opacities likely scars or atelectasis. Heart size is normal. There are bilateral breast prostheses. Solid organs: A 1.5 indeterminate hypodensity is noted in the anterior segment of the right hepatic lobe, demonstrating subtle peripheral enhancement, most likely a hemangioma. Hypodensity adjacent to the falciform ligament is likely secondary to focal fat. Liver is normal in size and enhancement. Gallbladder is normal. Biliary system is non-dilated. Pancreas enhances normally. Spleen is normal in size and enhancement. No adrenal nodules. Kidneys are normal in size and enhancement, without hydronephrosis. Peritoneum and bowel: There is oral contrast within the rectum. There is a filling defects in the rectum, which is most likely caused by artifacts. There is a large amount of stool in colon. Stomach, small bowel, and colon loops are normal in caliber and wall thickness. No free fluid or air. Nodes and vessels: No retroperitoneal or mesenteric adenopathy. Aorta and inferior vena cava are normal in caliber. Miscellaneous: No ventral hernias. PELVIS: Genitourinary: Bladder wall thickness is normal. Miscellaneous: No inguinal hernias or adenopathy. Bones: No suspicious bony lesions. No vertebral body compression fractures. IMPRESSION: 1. No evidence for perirectal abscess. 2. Filling defect in rectum are probably caused artifacts, but polypoid lesions cannot be excluded. Recommend correlation with findings on endoscopy. 3. A 1.5 cm indeterminate hypodensity liver demonstrates subtle peripheral enhancement, most likely a hepatic hemangioma. If clinically indicated, ultrasound may be helpful for followup. No significant discrepancy with the assistant store manager operations radiology preliminary report. Dictated by: Devika Do M.D. on 09/24/2018 at 13:05 Approved by: Devika Do M.D. on 09/24/2018 at 13:34 MDM Narrative Medical decision making narrative: Patient received Toradol for pain seem to help a lot. I spoke with Radiology is no abscess found may be some inflammation. She cannot take NSAIDs. Discussed with her possible low-dose steroids see if it helps with her pain. She has a lightly she is post be scheduled for colonoscopy that has not yet been scheduled. At this time this is been on for number of weeks she is not septic. She definitely has pain in her rectum knot in her pelvic vaginal area. Discharge Plan Departure Patient Disposition: Home Clinical Impression: Pain, rectal Discharge Date/Time: 09/24/18 14:15 Interventions: ED Discharge Assessment Last Done: 09/24/18 14:15 Instructions: DI for Colitis Activity Restrictions/Additional Instructions: *You have been diagnosed with rectal pain *What to do: At this time there is no absolute cause of erectile pain you do have some mild inflammation. At this time I do not believe we need to need antibiotics. You will likely need further evaluation including colonoscopy *Continue to take medications as directed Prednisone 20 mg once a day for 5 days start today--> SENT TO [facility] *Follow up with your primary care provider in 2-3 days, follow-up with your GI doctor for colonoscopy *Return to ER if you should have increased pain fevers bloody stools or any new, worsening or concerning symptoms Prescriptions: New prednisone 20 mg tablet 20 mg PO DAILY Qty: 5 RF: 0 No Action albuterol sulfate 90 mcg/actuation HFA aerosol inhaler 2 puff INHALATION Q4-6H PRN (Reason: shortness of breath or wheezing) Qty: 18 RF: 1 varicella-zoster [id number] (PF) [Shingrix (PF)] 50 mcg/0.5 mL suspension for reconstitution 50 mcg IM ONCE Qty: 1 RF: 1 dexlansoprazole 60 mg capsule,biphase delayed releas 60 mg PO BID Qty: 60 RF: 3 nortriptyline 10 mg capsule 10 mg PO BEDTIME RF: 0 Referrals: Cadence Sears PA-C [Primary Care Provider] -
--- NOTE | 2018-09-24 10:37 | ED_ITS ---
HPI - Abdominal Pain General Chief Complaint: Urogenital-Female Stated Complaint: pressure on anus Time Seen by Provider: 09/24/18 10:17 Source: patient Mode of arrival: ambulatory Limitations: no limitations History of Present Illness HPI narrative: Patient is a 58-year-old female who presents with pressure in her rectum ongoing for least 1 month. She has been having regular bowel movements, no abdominal pain no nausea vomiting or sweats. However she is having extreme pain in her rectum unable to sit down. She does have hemorrhoids but they are not bleeding. MD complaint: abdominal pain Related Data Home Medications Medication Instructions Recorded Confirmed nortriptyline 10 mg capsule 10 mg PO BEDTIME 08/28/18 09/24/18 Previous Rx's Medication Instructions Recorded varicella-zoster glycoE [id number]-AS01B 50 mcg IM ONCE #1 each 11/25/17 adj(PF) 50 mcg/0.5 mL IM susp, kit albuterol sulfate HFA 90 2 puff INHALATION Q4-6H PRN #18 05/26/18 mcg/actuation aerosol inhaler gram dexlansoprazole 60 mg 60 mg PO BID #60 cap 07/16/18 capsule,biphase delayed release prednisone 20 mg PO DAILY #5 tab 09/24/18 Allergies Allergy/AdvReac Type Severity Reaction Status Date / Time Penicillins [PENICILLINS] Allergy Severe RASH AND Verified 06/24/18 15:36 HIVES amoxicillin AdvReac Intermediate RASH Verified 06/24/18 15:36 epinephrine AdvReac Intermediate Anxiety Verified 06/24/18 15:36 attack Review of Systems Review of Systems GENERAL: Denies chills, fatigue, malaise, fever, sweats, travel HEENT: Denies sinus pain, ear pain, sore throat, difficulty swallowing, neck pain RESPIRATORY: Denies dyspnea, cough, wheezing, hemoptysis, sputum. CARDIOVASCULAR: Denies chest pain, palpitations, orthopnea, edema GASTROINTESTINAL: See HPI : Denies dysuria, frequency, incontinence, hematuria, urinary retention, flank pain. MUSCULOSKELETAL: Denies weakness, joint pain, or bony pain SKIN: No rash, no erythema, no pruritus NEUROLOGIC: Denies weakness, dizziness, headache, numbness, change in speech, confusion PSYCHIATRIC: No concerning psychosocial issues. 12 point review of systems is negative except for those stated above and HPI [facility] Medical History Anxiety (Chronic) Cystocele (Chronic 2018) Depression (Chronic) GERD (gastroesophageal reflux disease) (Chronic) Hyperlipidemia (Chronic) Irregular periods/menstrual cycles (Chronic) Colon polyps (Resolved) Surgical History History of arthroplasty (Resolved 05/22/16) Family History Brother [place] (myocardial infarction) Father [place] (myocardial infarction) Mother Lung disease Sister Ovarian cancer Social History Smoking Status: Former smoker Tobacco: How many years used: 16 second hand exposure: No alcohol intake: current substance use type: does not use Family History Brother [place] (myocardial infarction) Father [place] (myocardial infarction) Mother Lung disease Sister Ovarian cancer Social History Smoking Status: Former smoker Tobacco: How many years used: 16 second hand exposure: No alcohol intake: current substance use type: does not use Exam Initial Vital Signs Initial Vital Signs: Vital Signs Temperature 98.4 F 09/24/18 09:30 Pulse Rate 81 09/24/18 09:30 Respiratory Rate 20 09/24/18 09:30 Blood Pressure 120/70 09/24/18 09:30 Pulse Oximetry 100 09/24/18 09:30 GENERAL: Well-appearing, well-nourished and in no acute distress. HEENT: Head atraumatic,EOMI, pupils reactive, face symmetric, moist mucous membranes CARDIOVASCULAR: Regular rate and rhythm without murmurs, rubs or gallops. RESPIRATORY: Breath sounds equal bilaterally, no wheezes rales or rhonchi. ABDOMEN: Soft, nontender. Normoactive bowel sounds all 4 quadrants. No guardi ng or rebound. RECTAL: External hemorrhoids nonthrombosed no bleeding extreme tenderness about 6 o'clock position no rectocele. EXTREMITIES: Normal range of motion, no clubbing or edema. Neurovascularly intact NEUROLOGICAL: Alert and oriented x4.Normal gait and speech. Cranial nerves II through XII grossly intact. SKIN: Warm, dry, no laceration, no petechiae, no rashes or lesions. Course Orders Ordered: ED Orders 09/24/18 10:35 Complete Blood Count AUTO DIFF Stat Comprehensive Metabolic Panel Stat Lipase Stat 09/24/18 11:12 CT abdomen pelvis w con Stat Discontinued Medications Ketorolac Tromethamine (Toradol) 30 mg IV NOW ONE Stop: 09/24/18 11:40 Last Admin: 09/24/18 11:42 Dose: 30 mg Vital Signs - 8 hr 09/24/18 09:30 09/24/18 10:00 09/24/18 11:00 Temperature 98.4 F Pulse Rate 81 75 71 Respiratory Rate 20 19 20 Blood Pressure 120/70 Blood Pressure [Left Arm] 126/65 107/92 H Pulse Oximetry 100 98 99 09/24/18 11:55 09/24/18 13:30 Temperature Pulse Rate 71 76 Respiratory Rate 18 17 Blood Pressure Blood Pressure [Left Arm] 124/73 114/66 Pulse Oximetry 98 98 MDM - Abdominal Pain Lab Data Attestation: I reviewed the patient's lab results. Result diagrams: 09/24/18 10:35 09/24/18 10:35 Lab Results 09/24/18 09/24/18 Range/Units 10:35 10:35 WBC 6.2 (4.5-11.0) X10^3/uL RBC 5.12 (4.0-5.2) X10^6/uL Hgb 14.5 (12.0-16.0) g/dL Hct 43.6 (36-46) % MCV 85.1 (80-100) fL MCH 28.3 (26-34) PG MCHC 33.3 (30-36) % RDW 14.1 (11.6-14.8) % Plt Count 203 (150-400) X10^3/uL Neut % (Auto) 56.5 (50-75) % Lymph % (Auto) 36.9 (25-40) % [place] % (Auto) 6.0 (3-14) % Eos % (Auto) 0.4 L (2-4) % Baso % (Auto) 0.2 (0-2) % Neut # (Auto) 3500 (4230-0187) /uL Lymph # (Auto) 2300 (9666-0914) /uL [place] # (Auto) 400 (0-900) /uL Eos # (Auto) 0 (0-450) /uL Baso # (Auto) 0 (0-100) /uL Sodium 144 (137-145) mmol/L Potassium 3.7 (3.4-5.1) mmol/L Chloride 106 (98-107) mmol/L Carbon Dioxide 28 (22-32) mmol/L BUN 12 (7-17) mg/dL Creatinine 0.50 L (0.52-1.04) mg/dL Estimated GFR > 60.0 (>60) mL/min BUN/Creatinine Ratio 24.0 H (6-22) Glucose 121 H (70-100) mg/dL Calcium 9.4 (8.4-10.2) mg/dL Total Bilirubin 0.3 (0.2-1.3) mg/dL AST 19 (14-36) IU/L ALT 25 (9-52) IU/L Alkaline Phosphatase 60 (38-126) U/L Total Protein 7.0 (6.3-8.2) g/dL Albumin 4.3 (3.5-5.0) g/dL Globulin 2.7 (1.7-4.1) g/dL Albumin/Globulin Ratio 1.6 (1.0-2.8) Lipase 84 (23-300) U/L Point of care testing: Urine Dip Bedside Urine Glucose Negative Bedside Urine Bilirubin - Negative Bedside Urine Ketone - Negative Urine Specific [place] 1.015 Bedside Urine Occult Blood - Negative Bedside Urine pH 7.5 Bedside Urine Protein - Negative Bedside Urine Urobilinogen - Negative Bedside Urine Nitrite - Negative Bedside Urine Leukocytes - Negative Esterase Imaging Data CT scan - abdomen: Radiologist's impression: PROCEDURE: CT ABDOMEN PELVIS W CON INDICATIONS: severe rectal pain. ? abscess TECHNIQUE: After the administration of oral and intravenous contrast, 5 mm thick sections acquired from the diaphragms to the symphysis. 5 mm thick coronal and sagittal reformats were performed. For radiation dose reduction, the following was used: automated exposure control, adjustment of mA and/or kV according to patient size. COMPARISON: [facility], , ABDOMEN COMPLETE, 12/12/2006, 11:34. FINDINGS: Image quality: Excellent. ABDOMEN: Lung bases: Lingular opacities likely scars or atelectasis. Heart size is normal. There are bilateral breast prostheses. Solid organs: A 1.5 indeterminate hypodensity is noted in the anterior segment of the right hepatic lobe, demonstrating subtle peripheral enhancement, most likely a hemangioma. Hypodensity adjacent to the falciform ligament is likely secondary to focal fat. Liver is normal in size and enhancement. Gallbladder is normal. Biliary system is non-dilated. Pancreas enhances normally. Spleen is normal in size and enhancement. No adrenal nodules. Kidneys are normal in size and enhancement, without hydronephrosis. Peritoneum and bowel: There is oral contrast within the rectum. There is a filling defects in the rectum, which is most likely caused by artifacts. There is a large amount of stool in colon. Stomach, small bowel, and colon loops are normal in caliber and wall thickness. No free fluid or air. Nodes and vessels: No retroperitoneal or mesenteric adenopathy. Aorta and inferior vena cava are normal in caliber. Miscellaneous: No ventral hernias. PELVIS: Genitourinary: Bladder wall thickness is normal. Miscellaneous: No inguinal hernias or adenopathy. Bones: No suspicious bony lesions. No vertebral body compression fractures. IMPRESSION: 1. No evidence for perirectal abscess. 2. Filling defect in rectum are probably caused artifacts, but polypoid lesions cannot be excluded. Recommend correlation with findings on endoscopy. 3. A 1.5 cm indeterminate hypodensity liver demonstrates subtle peripheral enhancement, most likely a hepatic hemangioma. If clinically indicated, ultrasound may be helpful for followup. No significant discrepancy with the paramedic instructor radiology preliminary report. Dictated by: Devika Do M.D. on 09/24/2018 at 13:05 Approved by: Devika Do M.D. on 09/24/2018 at 13:34 MDM Narrative Medical decision making narrative: Patient received Toradol for pain seem to help a lot. I spoke with Radiology is no abscess found may be some inflammation. She cannot take NSAIDs. Discussed with her possible low-dose steroids see if it helps with her pain. She has a lightly she is post be scheduled for colonoscopy that has not yet been scheduled. At this time this is been on for number of weeks she is not septic. She definitely has pain in her rectum knot in her pelvic vaginal area. Discharge Plan Departure Patient Disposition: Home Clinical Impression: Pain, rectal Discharge Date/Time: 09/24/18 14:15 Interventions: ED Discharge Assessment Last Done: 09/24/18 14:15 Instructions: DI for Colitis Activity Restrictions/Additional Instructions: *You have been diagnosed with rectal pain *What to do: At this time there is no absolute cause of erectile pain you do have some mild inflammation. At this time I do not believe we need to need antibiotics. You will likely need further evaluation including colonoscopy *Continue to take medications as directed Prednisone 20 mg once a day for 5 days start today--> SENT TO [email or web address] *Follow up with your primary care provider in 2-3 days, follow-up with your GI doctor for colonoscopy *Return to ER if you should have increased pain fevers bloody stools or any new, worsening or concerning symptoms Prescriptions: New prednisone 20 mg tablet 20 mg PO DAILY Qty: 5 RF: 0 No Action albuterol sulfate 90 mcg/actuation HFA aerosol inhaler 2 puff INHALATION Q4-6H PRN (Reason: shortness of breath or wheezing) Qty: 18 RF: 1 varicella-zoster [id number] (PF) [Shingrix (PF)] 50 mcg/0.5 mL suspension for reconstitution 50 mcg IM ONCE Qty: 1 RF: 1 dexlansoprazole 60 mg capsule,biphase delayed releas 60 mg PO BID Qty: 60 RF: 3 nortriptyline 10 mg capsule 10 mg PO BEDTIME RF: 0 Referrals: Cadence Sears PA-C [Primary Care Provider] -
[2018-09-24 10:50] LABS: Add Manual Diff / Slide Review NO; Basophils Absolute Auto 0 /uL (0-100); Basophils Percent Auto 0.2 % (0-2); Eosinophils Absolute Auto 0 /uL (0-450); Eosinophils Percent Auto 0.4 % (2-4); Hematocrit 43.6 % (36-46); Hemoglobin 14.5 g/dL (12.0-16.0); Lymphocytes Absolute Auto 2300 /uL (1100-4500); Lymphocytes Percent Auto 36.9 % (25-40); Mean Corpuscular HGB Conc 33.3 % (30-36); Mean Corpuscular Hemoglobin 28.3 PG (26-34); Mean Corpuscular Volume 85.1 fL (80-100); Monocytes Absolute Auto 400 /uL (0-900); Neutrophils Absolute Auto 3500 /uL (1500-7000); Neutrophils Percent Auto 56.5 % (50-75); Platelet Count 203 X10^3/uL (150-400); Red Blood Cell Count 5.12 X10^6/uL (4.0-5.2); Red Cell Distribution Width 14.1 % (11.6-14.8); White Blood Cell Count 6.2 X10^3/uL (4.5-11.0)
[2018-09-24 10:55] LABS: Alanine Aminotransferase 25 IU/L (9-52); Albumin 4.3 g/dL (3.5-5.0); Albumin Globulin Ratio 1.6 (1.0-2.8); Alkaline Phosphatase 60 U/L (38-126); Aspartate Aminotransferase 19 IU/L (14-36); Bilirubin Total 0.3 mg/dL (0.2-1.3); Blood Urea Nitrogen 12 mg/dL (7-17); Calcium 9.4 mg/dL (8.4-10.2); Carbon Dioxide 28 mmol/L (22-32); Chloride 106 mmol/L (98-107); Estimated Glomerular Filt Rate > 60.0 mL/min (>60); Globulin 2.7 g/dL (1.7-4.1); Glucose 121 mg/dL (70-100); HEMOLYSIS < 15 (0-50); Lipase 84 U/L (23-300); Potassium 3.7 mmol/L (3.4-5.1); Sodium 144 mmol/L (137-145)
[2018-09-24 11:00] VITALS: BP 107/92; PULSE 71; RESP 20; O2SAT 99
--- NOTE | 2018-09-24 11:12 | DI.CT.S_ITS ---
PROCEDURE: CT ABDOMEN PELVIS W CON INDICATIONS: severe rectal pain. ? abscess TECHNIQUE: After the administration of oral and intravenous contrast, 5 mm thick sections acquired from the diaphragms to the symphysis. 5 mm thick coronal and sagittal reformats were performed. For radiation dose reduction, the following was used: automated exposure control, adjustment of mA and/or kV according to patient size. COMPARISON: [facility], , ABDOMEN COMPLETE, 12/12/2006, 11:34. FINDINGS: Image quality: Excellent. ABDOMEN: Lung bases: Lingular opacities likely scars or atelectasis. Heart size is normal. There are bilateral breast prostheses. Solid organs: A 1.5 indeterminate hypodensity is noted in the anterior segment of the right hepatic lobe, demonstrating subtle peripheral enhancement, most likely a hemangioma. Hypodensity adjacent to the falciform ligament is likely secondary to focal fat. Liver is normal in size and enhancement. Gallbladder is normal. Biliary system is non-dilated. Pancreas enhances normally. Spleen is normal in size and enhancement. No adrenal nodules. Kidneys are normal in size and enhancement, without hydronephrosis. Peritoneum and bowel: There is oral contrast within the rectum. There is a filling defects in the rectum, which is most likely caused by artifacts. There is a large amount of stool in colon. Stomach, small bowel, and colon loops are normal in caliber and wall thickness. No free fluid or air. Nodes and vessels: No retroperitoneal or mesenteric adenopathy. Aorta and inferior vena cava are normal in caliber. Miscellaneous: No ventral hernias. PELVIS: Genitourinary: Bladder wall thickness is normal. Miscellaneous: No inguinal hernias or adenopathy. Bones: No suspicious bony lesions. No vertebral body compression fractures. IMPRESSION: 1. No evidence for perirectal abscess. 2. Filling defect in rectum are probably caused artifacts, but polypoid lesions cannot be excluded. Recommend correlation with findings on endoscopy. 3. A 1.5 cm indeterminate hypodensity liver demonstrates subtle peripheral enhancement, most likely a hepatic hemangioma. If clinically indicated, ultrasound may be helpful for followup. No significant discrepancy with the operation shift supervisor radiology preliminary report. Dictated by: Devika Do M.D. on 09/24/2018 at 13:05 Approved by: Devika Do M.D. on 09/24/2018 at 13:34
[2018-09-24] MEDS: KETOROLAC 60 MG/2 ML VIAL 30 MG IV (11:42)
[2018-09-24 11:55] VITALS: BP 124/73; PULSE 71; RESP 18; O2SAT 98
[2018-09-24 13:30] VITALS: BP 114/66; PULSE 76; RESP 17; O2SAT 98
--- NOTE | 2018-09-24 14:59 | PC.NURSE ---
phoned in prednisone rx to [facility]. pt's rx did not go through electronically.
== END 2018-09-24 14:15 | disposition home or self-care (01) ==
PROVIDERS: Emergency Provider Emergency Medicine; PCP Physician Assistant
DX: K62.89 Other specified diseases of anus and rectum (principal)
CPT/HCPCS: 36591; 74177; 80053; 81003; 83690; 85025; 96374; 99283; 99284; J1885; Q9967

== ENCOUNTER → 2018-12-01 12:11 | Outpatient (CLI) | payer OTHER, SELFPAY ==
--- NOTE | 2018-12-01 | DI.MG.S_ITS ---
BILATERAL DIGITAL SCREENING MAMMOGRAM 3D/2D WITH CAD WITH AUGMENTATION: 12/01/2018 CLINICAL: Routine screening. Comparison is made to exams dated: 02/12/2017 mammogram, 11/22/2015 mammogram, and 11/17/2014 mammogram - [facility]. There are scattered fibroglandular elements in both breasts. Current study was also evaluated with a Computer Aided Detection (CAD) system. Bilateral breast implants are stable. No significant masses, calcifications, or other findings are seen in either breast. There has been no significant interval change. IMPRESSION: NEGATIVE There is no mammographic evidence of malignancy. A 1 year screening mammogram is recommended. This exam was interpreted at Station ID: [id number]. NOTE: For mammograms, a report in lay terms will be sent to the patient. Approximately 15% of breast malignancies will not be visualized mammographically. In the management of a palpable breast mass, a negative mammogram must not discourage biopsy of a clinically suspicious lesion. Electronically Signed By: Swati mckeon/lake:12/01/2018 13:34:40 letter sent: Normal Exam ACR BI-RADS Category 1: Negative [id number]
== END ==
PROVIDERS: PCP Physician Assistant; Visit Provider Physician Assistant
DX: Z12.31 Encounter for screening mammogram for malignant neoplasm of breast (principal)
CPT/HCPCS: 77063; 77067

== ENCOUNTER → 2018-12-10 13:35 | Outpatient (CLI) | payer OTHER, SELFPAY ==
--- NOTE | 2018-12-10 13:38 | DI.RAD.S_ITS ---
PROCEDURE: XR LUMBAR SPINE 2-3V INDICATIONS: Persistant low back pain TECHNIQUE: 3 views of the lumbar spine were acquired. COMPARISON: None. FINDINGS: Bones: No fracture or focal osseous destruction. Straightening of the normal lordotic curvature. Grade 1 retrolisthesis of L2 on L3 and L3 on L4. Multilevel degenerative endplate sclerosis and spurring. Diffuse facet arthropathy. Moderate narrowing of the L4-L5 disc space. Mild narrowing of the remaining lumbar disc spaces Soft tissues: Overlying bowel gas pattern is normal. No suspicious soft tissue calcifications. IMPRESSION: Multilevel lumbar spondylosis and facet disease, most pronounced at L4-L5. Straightening of the normal lordotic curvature. Mild multilevel retrolisthesis as above. Dictated by: Phoenix Bland M.D. on 12/10/2018 at 16:51 Approved by: Phoenix Bland M.D. on 12/10/2018 at 16:53
== END ==
PROVIDERS: PCP Physician Assistant; Visit Provider Physician Assistant
DX: M54.5 Low back pain (principal); G89.29 Other chronic pain; M47.816 Spondylosis without myelopathy or radiculopathy, lumbar region; M43.16 Spondylolisthesis, lumbar region
CPT/HCPCS: 72100

== ENCOUNTER → 2019-01-06 07:34 | Outpatient (CLI) | payer OTHER, SELFPAY ==
--- NOTE | 2019-01-15 15:51 | PM.CARDMON.1 ---
Archivist Military History Report Referral & Results Date Patient Seen: 01/06/19 Requesting provider: Magalis Harrington Indication: Palpitations Duration of monitoring (days): 3 Diary information: There were 4 patient diary entries and 4 patient triggered events. These events were associated with sinus rhythm and PACs Data: Minimum heart rate identified was 52 beats per minute at 01:50 on 01/08/2019 Maximum sinus heart rate was 136 beats per minute at 08:56 on 01/07/2019 Maximum overall heart rate is 182 beats per minute at 09:29 on 01/08/2019 during a 5 beat run of SVT Less than 1% of identified beats or either supraventricular ventricular ectopic in origin Patient had 2 runs of SVT the fastest being the above-mentioned 5 beat run at 182 beats per minute the longest was 6 beats at 125 beats per minute which suggest atrial tachycardia rather than true SVT Impression: Patient's symptoms possibly related to PACs No other more serious dysrhythmia identified on this study
== END ==
PROVIDERS: PCP Physician Assistant; Visit Provider Hospitalist
DX: R00.2 Palpitations (principal)
CPT/HCPCS: 0296T; 0298T

== ENCOUNTER → 2019-04-13 12:40 | Outpatient (CLI) | payer OTHER, SELFPAY ==
--- NOTE | 2019-04-13 | DI.RAD.S_ITS ---
PROCEDURE: FL BARIUM SWALLOW W SPEECH INDICATIONS: Dysphagia, oropharyngeal phase TECHNIQUE: Examination was conducted in conjunction with speech pathology per standard protocol. In the lateral projection, filming was performed of the patient swallowing. AP projection filming may also be performed with patient swallowing. COMPARISON: [facility], , [place] BARIUM SWALLOW W SPEECH, 07/06/2018, 10:04. FINDINGS: Function: The oral preparatory phase appears normal, with proper containment. The subsequent oral propulsive phase, pharyngeal phase, and esophageal phase of swallowing also appear normal with all proffered substances. No laryngotracheal penetration or aspiration. No pathologic vallecular pooling. Morphology: No cricopharyngeal bar is identified. No cervical esophageal webs. No Zenker's diverticulum. No strictures. IMPRESSION: Normal examination, no penetration or aspiration seen. A barium tablet was utilized and followed through the esophagus into the gastric lumen without significant delay. Please also refer to the dedicated report that would be independently generated by speech pathology staff on review of the high resolution radiographic imaging obtained through the study. Dictated by: Steve Corrales M.D. on 04/13/2019 at 13:52 Approved by: Steve Corrales M.D. on 04/13/2019 at 13:53
--- NOTE | 2019-04-13 17:34 | ST.SWALLOW ---
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 Modified Barium Swallow Study Start: 04/13/19 13:21 Freq: Status: Active Protocol: Document 04/13/19 13:21 RAVI (Rec: 04/13/19 14:30 RVAI [id number]) Modified Barium Swallow Study Total Time Visit Start Time 13:00 Visit Stop Time 13:30 Total Visit Minutes 30 Referral Referring Physician Cadence Sears Reason for Referral Dysphagia - Follow Up MBS after outpatient therapy Setting Setting Outpatient Care Patient Information Identification Type Name,ID Card Patient History The pt is a 59-yr-old female who has been participating in outpatient dysphagia therapy with this clinician following a 7-month history of swallow difficulties including globus sensation and unintentional weight loss of 35 lbs. She has diagnosis of GERD and has been following a strict GERD diet and taking Dexilant (PPI) daily. The pt underwent endoscopy in April 2018, revealing esophageal inflammation. Following the endoscopy, she was diagnosed with pneumonia. ENT performed flexible endoscopy and observed irritation and inflammation of the vocal folds. The pt underwent Modified Barium Swallow Study on 07/06/18 at [facility], which revealed mild oropharyngeal dysphagia characterized by mildly reduced epiglottic inversion, pharyngeal stripping wave, and UES opening, allowing mild pharyngeal residue. The pt was recommended regular diet texture and thin liquids with compensatory strategies and outpatient treatment. She presents today for follow up MBS to assess swallow function, effects of outpatient treatment, and aspiration risk. Subjective Observations The pt arrived on time. She reports daily compliance with swallow exercises and only occasional globus sensation during oral intake. No other complaints or swallow difficulties. Patient Positioning Position View Lat-A/P Imaging Lateral View Textures Administered Trials Presented Thin Liquid via Spoon,Thin Liquid via Cup,Belfast Liquid via Spoon,Belfast Liquid via Cup,Honey Liquid via Spoon, Dysphagia Blenderized Textures ,Regular Textures Oral Phase Source: MBSIMP (TM) (C) Bolus Specific Scoring Grid Lip Closure No Impairment (WNL) Tongue Control During Bolus Hold No Impairment (WNL) Bolus Prep/Mastication No Impairment (WNL) Bolus Transport/Lingual Motion No Impairment (WNL) A/P Lingual Propulsion Delay No Oral Residue WFL Nasal Regurgitation No Additional Oral Phase Observations Oral swallow phase is WNL. Pharyngeal Phase Source: MBSIMP (TM) (C) Bolus Specific Scoring Grid Delayed Initiation of Pharyngeal Swallow No Residue Along the Tongue Base Yes: Trace to mild Clearance of Residue Along Tongue Base WFL Laryngeal Elevation No Impairment (WNL) Anterior Hyoid Movement No Impairment (WNL) Epiglottic Range of Motion Mild Impairment Vallecular Residue Yes: Mild with liquids only Clearance of Vallecular Residue Minimal Impairment Laryngeal Vestibular Closure No Impairment (WNL) Pharyngeal Stripping Wave Mild Impairment Pharyngeal Contraction No Impairment (WNL) Posterior Pharyngeal Wall Residue No Upper Esophageal Sphincter Opening No Impairment (WNL) Residue in the Pyriform Sinuses Yes: Trace with liquids only Clearance of Residue in the Pyriform WFL Sinuses Pharyngoesophageal Backflow Observed No Additional Pharyngeal Phase Observations Mildly reduced tongue base retraction and pharyngeal stripping wave and inconsistent epiglottic inversion result in trace to mild pharyngeal residue with liquids, which mostly cleared with subsequent swallows. Epiglottic inversion and pharyngeal clearance improve with increased bolus bulk. Moderate ostephytes were observed at C4-C5, C5-C6, and C6-C7 which did not significantly impede bolus flow but did contribute to trace-mild residue at pyriform sinuses. No penetration or aspiration was observed. The pt denied sticking sensation but did sense the mild residue which was present and performed additional swallows to clear. A/P View Textures Administered Trials Presented Belfast Liquid via Cup, Dysphagia Blenderized Textures ,Barium Tablet A/P View Observations Pharyngeal Contraction No Impairment (WNL) Esophageal Clearance Upright Position No Impairment (WNL) Esophageal Observations Esophageal Function NTL and pudding cleared to stomach without difficulty. Barium tablet (13mm) passed directly to LES and, with additional sip of liquid, into stomach. Clinical Impressions Dysphagia Type Swallow WFL Findings The pt presents with improved swallow function and safety. Minimal pharyngeal residue observed secondary to mildly reduced tongue base retraction , stripping wave, inconsistent epiglottic inversion with liquids, and presence of osteophytes. No penetration or aspiration were observed. Pt is recommended to continue swallow exercises to maintain or improve current function. Suspect GERD/LPR may contribute to occasional globus sensation. Rehabilitation Potential Excellent Patient Appropriate for Therapy No Recommendations Diet Liquids Order Thin Diet Order Regular Medication Recommendation As Tolerated Aspiration Precautions Recommended Precautions Upright at 90 Degrees,Small Bites/Sips Treatment Plan Therapy Recommendations Other Additional Therapy Recommendations F/U x1 to review MBS results and dc from outpatient care Placement Recommendation After Discharge Home
== END ==
PROVIDERS: PCP Physician Assistant; Referring Provider Physician Assistant; Visit Provider Physician Assistant
DX: R13.12 Dysphagia, oropharyngeal phase (principal)
CPT/HCPCS: 74230; 92611

== ENCOUNTER 2019-04-15 09:30 | Outpatient (RCR) | payer OTHER, SELFPAY ==
--- NOTE | 2018-12-10 11:32 | ST.OPIE ---
Visit Care Team Role Provider Type Cadence Sears PA-C Attending Provider Advanced Food Runner Primary Care Provider Specialty: Medical Address: [address] [place] [address], [address], [place], [address] Email: [email or web address] Speech-Language Pathology Initial Evaluation BUSINESS LAW INSTRUCTOR Clinical Swallow Evaluation Start: 12/09/18 17:03 Freq: Status: Active Protocol: Document 12/09/18 17:03 RAVI (Rec: 12/09/18 17:04 RAVI [email or web address]) Clinical Swallow Evaluation Session Time Visit Start Time 14:30 Visit Stop Time 15:25 Total Visit Minutes 55 Visit Information Plan of Care Dates 12/09/18 - 03/11/19 Insurance Information [facility] Referral Referring Physician Dr. Sears Reason for Referral Dysphagia Setting Assessment Location Outpatient Care Visit Type Note Type Initial Evaluation Next Note Type Next Note Type Treatment Note Patient Information Identification Type Name,ID Card History This 58-yr-old female has a 7- month history of swallow difficulties including globus sensation and unintentional weight loss of 35 lbs. She has diagnosis of GERD and has been following a strict GERD diet and taking Dexilant (PPI) daily, which she states has been helpful but has not relieved all symptoms. The pt underwent endoscopy in April 2018, revealing esophageal inflammation. Following the endoscopy, she was diagnosed with pneumonia. The pt was also seen by ENT who performed flexible endoscopy and observed irritation and inflammation of the vocal folds. Finally, the pt underwent Modified Barium Swallow Study on 07/06/[address] [facility], which revealed mild oropharyngeal dysphagia characterized by mildly reduced epiglottic inversion, pharyngeal stripping wave, and UES opening, allowing mild pharyngeal residue. The pt reported today that she frequently feels posterior escape of bolus prior to swallow onset, which was observed in video review of MBSS. Following MBSS, the pt was recommended regular diet texture and thin liquids with compensatory strategies (double swallow, small bites/ sips, alternate liquids/solids) and outpatient dysphagia therapy to increase strength of swallow musculature. Voice therapy was also recommended to address reduced vocal quality secondary to GERD. Subjective Observations The pt arrived on time and provided case history supplemental to medical records. She expressed significant frustration with current symptoms, as well as enthusiasm and motivation to proceed with dysphagia therapy. She was highly engaged throughout the evaluation, asking good questions and was responsive to answers and education. Vocal quality and voice therapy were not discussed during this session and will be addressed at next session. Evaluation Liquids Trialed Thin Solids Trialed Puree,Mechanical Soft,Regular Administration Type Tea Spoon,Cup Single Sip,Cup Consecutive Sips,Self-Feeding Oral Impairment Mildly Impaired Oral Strategies Upright at 90 degrees, Controlled Bite/Sip Size Oral Phase Comments Oral Peripheral Exam: All structures were symmetrical. Mildly reduced buccal coordination in task of shifting air between cheeks. Otherwise, structures were WNL of strength, coordination and ROM. Soft palate elevated upon phonation. The pt has full set of natural teeth with some caps and implants; in excellent condition. Hyolaryngeal elevation/ excursion mildly reduced via palpation and review of MBS video. Oral Phase: WNL with exception of pt complaint/observation of posterior escape of diced fruit during mastication. This improved with chin tuck and elevation of back of tongue, both performed independent of the other and during mastication. No abnormal oral residue was observed. Pharyngeal Impairment Mildly Impaired Pharyngeal Strategies Sitting Upright (90 deg), Double Swallow,Effortful Swallow,Mendelsonn Maneuver, Small Bites and Sips Pharyngeal Phase Comments No overt s/sx of aspiration were observed. The pt complained x2 of sticking sensation in throat, which resolved somewhat with double swallow and completely with liquid wash after double swallow. Education was provided to the pt including review of MBSS video, normal vs abnormal swallow, GERD/LPR and POC. The pt expressed appreciation of and agreement with information provided. All questions were answered. Findings Dysphagia Type Mild Oropharyngeal Dysphagia Rehabilitation Potential Good Impressions The pt presents with mild oropharyngeal dysphagia, consistent with MBSS results of April 2018 and resulting in significant discomfort with swallow. The pt demonstrates adequate airway protection at this time and is not at high risk of aspiration. Dysphagia is secondary to mildly reduced strength of swallow musculature and likely impacted by GERD/LPR. With initiation of compensatory swallow strategies and swallow strengthening exercises, it is anticipated the pt's symptoms will improve but will also be impacted by ongoing GERD/LPR contributors. The pt is referred to GI/PCP for continued GERD/LPR management, although it appears treatment has been aggressive to date without complete resolution of symptoms. Diet Recommendations Liquids Order Thin Diet Order Regular Medication Recommendations As Tolerated Aspiration Precautions Recommended Precautions Upright at 90 Degrees,Small Bites/Sips,Chin Tuck,Effortful Swallow,Double Swallow, Concepcion Maneuvor Treatment Plan Placement Recommendations after Home Discharge Appropriate for Therapy Yes Therapy Recommendations Training of compensatory swallow strategies and exercises to increase strength, coordination and ROM of swallow musculature; ongoing education RE GERD/LPR. Assessment and treatment of voice will be addressed at next session and added to POC if warranted. Dysphagia Goals 1. The pt will perform compensatory swallow strategies independently to decrease discomfort with swallow. 2. The pt will perform exercises to increase strength, coordination and ROM of swallow musculature and efficiency of swallow in order to reduce discomfort and maintain airway protection during oral intake. 3. The pt will tolerate regular diet and thin liquids without s/sx of aspiration. 4. The pt will report comfort and confidence with oral intake WNL. BUSINESS LAW INSTRUCTOR Follow Up 1x/wk for 3 wks; taper to 1 visit every 2-3 wks for up to 3 mo
--- NOTE | 2018-12-23 13:28 | ST.OPTN ---
Visit Care Team Role Provider Type Cadence Sears PA-C Attending Provider Advanced Picture Booker Primary Care Provider Address: [address] [place] [address], [address], [place], [address] LPN MEDICAL ASSISTANT Treatment Note LPN MEDICAL ASSISTANT Treatment Note Start: 12/09/18 17:03 Freq: Status: Active Protocol: Document 12/23/18 13:15 RAVI (Rec: 12/23/18 13:28 RAVI [email or web address]) Speech Pathology Treatment Note Session Time Visit Start Time 12:30 Visit Stop Time 13:15 Total Visit Minutes 45 Visit Information Visit Number 03/05 Setting Treatment Setting Outpatient Care Visit Type Note Type Treatment Note Next Note Type Next Note Type Treatment Note Subjective Observations/Patient Presentation Pt arrived on time. No new complaints. Reported compliance with exercises. Discussed voice therapy. The pt has no complaints of voice at this time and is perceived by LPN MEDICAL ASSISTANT to be WNL. The pt reported having had inflammation of VFs months ago , which is consistent with ENT report, but that appears to have resolved. No voice therapy is warranted at this time. Chief Complaint(s) Swallowing Rehab Expectation/Goals: Patient Goals Improve swallow to WNL Patient Knowledge/Awareness of LPN MEDICAL ASSISTANT Role Excellent in Treatment Objective Treatment Activities Continued training pt in swallow exercises including Shaker (pt held head for 35 sec and completed 14 reps with intermittent rests after 8 reps), Concepcion, and back of tongue. The pt initially had difficulty performing Concepcion via volitional sustained elevation of larynx. A variety of approaches to this exercise were trialed with best results when pt sucked in her saliva and swallowed hard and slowly. By end of session, she was able to volitionally lift and hold larynx x3 reps. The pt also completed Betsy, and base of tongue exercises independently. Discussed frequency of visits. Will see pt again next week to ensure understanding of and independence in exercises; then f/u again 2 wks after. Assessment Patient Response to Treatment Excellent Rehab Potential Excellent Impairments Identified Dysphagia Progress Towards Goals Excellent Progress Assessment of Overall Progress Improving Assessment of Improvement The pt demonstrated excellent understanding of and ability to perform exercises, including improvement to independent production of Concepcion maneuver over course of session. Reviewed with Patient Goals,Progress Being Made,Home Exercise Program Patient/Caregiver Understanding Excellent Plan Therapeutic Contents Client Education,Home Exercise Program,Swallowing/Feeding Provided Patient/Caregiver Instruction Home Exercise Program,Plan of Care,Questions/Concerns Therapy Recommendations Continue with Current Program
--- NOTE | 2018-12-29 17:44 | ST.OPTN ---
Visit Care Team Role Provider Type Cadence Sears PA-C Attending Provider Advanced Private Duty Rn Primary Care Provider Address: [address] [place] [address], [address], [place], [address] EMERGENCY OPERATOR Treatment Note EMERGENCY OPERATOR Treatment Note Start: 12/09/18 17:03 Freq: Status: Active Protocol: Document 12/29/18 17:32 RAVI (Rec: 12/29/18 17:44 RAVI [email or web address]) Speech Pathology Treatment Note Session Time Visit Start Time 13:30 Visit Stop Time 14:15 Total Visit Minutes 45 Visit Information Visit Number 04/05 Plan of Care Dates 12/09/18 - 03/11/19 Insurance Information [facility] Setting Treatment Setting Outpatient Care Visit Type Note Type Treatment Note Next Note Type Next Note Type Treatment Note General Information General Information This 58-yr-old female has a 7- month history of swallow difficulties including globus sensation and unintentional weight loss of 35 lbs. She has diagnosis of GERD and has been following a strict GERD diet and taking Dexilant (PPI) daily, which she states has been helpful but has not relieved all symptoms. The pt underwent endoscopy in April 2018, revealing esophageal inflammation. Following the endoscopy, she was diagnosed with pneumonia. The pt was also seen by ENT who performed flexible endoscopy and observed irritation and inflammation of the vocal folds. Finally, the pt underwent Modified Barium Swallow Study on 07/06/18 at [facility], which revealed mild oropharyngeal dysphagia characterized by mildly reduced epiglottic inversion, pharyngeal stripping wave, and UES opening, allowing mild pharyngeal residue. The pt reported today that she frequently feels posterior escape of bolus prior to swallow onset, which was observed in video review of MBSS. Following MBSS, the pt was recommended regular diet texture and thin liquids with compensatory strategies ( double swallow, small bites/ sips, alternate liquids/solids ) and outpatient dysphagia therapy to increase strength of swallow musculature. Voice therapy was also recommended to address reduced vocal quality secondary to GERD. Subjective Observations/Patient Presentation Pt arrived on time. No new complaints. Reported improved compliance with exercises, some disappointment that she doesn't feel more improvement. Chief Complaint(s) Swallowing Rehab Expectation/Goals: Patient Goals Improve swallow to WNL Patient Knowledge/Awareness of EMERGENCY OPERATOR Role Excellent in Treatment Objective Short Term Goals 1. The pt will perform compensatory swallow strategies independently to decrease discomfort with swallow. 2. The pt will perform exercises to increase strength , coordination and ROM of swallow musculature and efficiency of swallow in order to reduce discomfort and maintain airway protection during oral intake. Nursery Nurse Goals 3. The pt will tolerate regular diet and thin liquids without s/sx of aspiration. 4. The pt will report comfort and confidence with oral intake WNL. Treatment Activities Education and feedback provided RE pt's concern at delay in feeling of improvement and need for consistent compliance with HEP . Pt verbalized understanding. Pt completed Shaker exercise with 60-sec head hold and 30 head lift/lower reps with frequent breaks after every ~5 reps. She exhibited good form and independence with exercise. She also performed Betsy, base and back of tongue, and Concepcion exercises with instruction and modification to Concepcion as needed. She exhibited inconsistent performance with Concepcion and improved hyolaryngeal elevation and depression when humming rollercoaster pitch glides. The pt found this easier to do . Modifications to back of tongue were made, as well, to reduce glottal participation and protect VFs. With verbal instruction and demonstration, the pt was able to perform the task appropriately with lingual contact with soft palate. Discussed POC with pt. Agreed to follow up again in 2 wks and request MD orders for MBSS to take place mid-January to re-evaluate swallow function and assess benefit of dysphagia therapy. EMERGENCY OPERATOR agreed to request those orders this week as to avoid a delay in scheduling. Assessment Patient Response to Treatment Excellent Rehab Potential Excellent Impairments Identified Dysphagia Progress Towards Goals Excellent Progress Assessment of Overall Progress Improving Assessment of Improvement The pt required a few modifications to execution of swallow exercises to increase benefit and ease performance. With these modifications, the pt demonstrated independence in performing HEP tasks. She continues with sensation of pharyngeal residue, which is anticipated to resolve with strict compliance with HEP. MBSS is recommended in 4-6 weeks to re-evaluate swallow function and assess benefit of skilled intervention. Until then, pt will continue to be seen every 2 weeks to monitor progress, provide education and training as needed. Reviewed with Patient Goals,Progress Being Made,Home Exercise Program Patient/Caregiver Understanding Excellent Plan Therapeutic Contents Client Education,Home Exercise Program,Swallowing/Feeding Provided Patient/Caregiver Instruction Home Exercise Program,Plan of Care,Questions/Concerns Therapy Recommendations Continue with Current Program Other Referrals MBSS in 4-6 wks.
--- NOTE | 2019-01-12 14:22 | ST.OPTN ---
Visit Care Team Role Provider Type Cadence Sears PA-C Attending Provider Advanced On Site Wastewater Systems Technician Primary Care Provider Address: [address] [place] [address], [address], [place], [address] PLATING FOREMAN Treatment Note PLATING FOREMAN Treatment Note Start: 12/09/18 17:03 Freq: Status: Active Protocol: Document 01/12/19 14:13 RAVI (Rec: 01/12/19 14:22 RAVI [email or web address]) Speech Pathology Treatment Note Session Time Visit Start Time 13:30 Visit Stop Time 14:05 Total Visit Minutes 35 Visit Information Visit Number 05/03 Plan of Care Dates 12/09/18 - 03/11/[address] [facility] Setting Treatment Setting Outpatient Care Visit Type Note Type Treatment Note Next Note Type Next Note Type Treatment Note General Information General Information This 58-yr-old female has a 7- month history of swallow difficulties including globus sensation and unintentional weight loss of 35 lbs. She has diagnosis of GERD and has been following a strict GERD diet and taking Dexilant (PPI) daily, which she states has been helpful but has not relieved all symptoms. The pt underwent endoscopy in April 2018, revealing esophageal inflammation. Following the endoscopy, she was diagnosed with pneumonia. The pt was also seen by ENT who performed flexible endoscopy and observed irritation and inflammation of the vocal folds. Finally, the pt underwent Modified Barium Swallow Study on 07/06/[address] [facility], which revealed mild oropharyngeal dysphagia characterized by mildly reduced epiglottic inversion, pharyngeal stripping wave, and UES opening, allowing mild pharyngeal residue. The pt reported today that she frequently feels posterior escape of bolus prior to swallow onset, which was observed in video review of MBSS. Following MBSS, the pt was recommended regular diet texture and thin liquids with compensatory strategies ( double swallow, small bites/ sips, alternate liquids/solids ) and outpatient dysphagia therapy to increase strength of swallow musculature. Voice therapy was also recommended to address reduced vocal quality secondary to GERD. Subjective Observations/Patient Presentation Pt arrived on time. No new complaints. Reported improved compliance with exercises. States she feels swallowing is improving. Only 1 coughing episode with intake since last seen, which she felt was from not paying attention. She requested to continue with exercises for another month and then follow up with MBS, which is consistent with POC. Chief Complaint(s) Swallowing Rehab Expectation/Goals: Patient Goals Improve swallow to WNL Patient Knowledge/Awareness of PLATING FOREMAN Role Excellent in Treatment Objective Short Term Goals 1. The pt will perform compensatory swallow strategies independently to decrease discomfort with swallow. 2. The pt will perform exercises to increase strength , coordination and ROM of swallow musculature and efficiency of swallow in order to reduce discomfort and maintain airway protection during oral intake. Consultant Rn Goals 3. The pt will tolerate regular diet and thin liquids without s/sx of aspiration. 4. The pt will report comfort and confidence with oral intake WNL. Treatment Activities Pt performed swallow exercises as prescribed, successful with all but Concepcion, which was modified to lifting paper through straw. Pt was able to perform with index card stock . Attempted with heavier items including larger card stock paper, sugar packet and tea bag to increase resistance but was unsuccessful. Also initiated vocal pitch glides targeting hyolaryngeal musculature for airway protection. Pt completed with ease. Written instructions were modified and provided to pt. Educated pt RE POC. Scheduled f/u in 4 wks and MBS on . All the pt's questions were answered. Assessment Patient Response to Treatment Excellent Rehab Potential Excellent Impairments Identified Dysphagia Progress Towards Goals Excellent Progress Assessment of Overall Progress Improving Assessment of Improvement Pt is progressing well and is highly compliant with HEP. Performing exercises independently as instructed and experiencing reduced coughing/choking with oral intake. Will f/u in 4 wks and re-assess swallow function and safety with MBS on . Reviewed with Patient Goals,Progress Being Made,Home Exercise Program Patient/Caregiver Understanding Excellent Plan Therapeutic Contents Client Education,Home Exercise Program,Swallowing/Feeding Provided Patient/Caregiver Instruction Home Exercise Program,Plan of Care,Questions/Concerns Therapy Recommendations Continue with Current Program Other Referrals MBSS in 4-6 wks.
--- NOTE | 2019-04-15 12:04 | ST.OPTN ---
Visit Care Team Role Provider Type Cadence Sears PA-C Attending Provider Advanced Rotary Adjuster Primary Care Provider Address: [address] [place] [address], [address], [place], [address] WINDOW INSTALLATION SUBCONTRACTOR Treatment Note WINDOW INSTALLATION SUBCONTRACTOR Treatment Note Start: 12/09/18 17:03 Freq: Status: Active Protocol: Document 04/15/19 11:28 RAVI (Rec: 04/15/19 12:03 RAVI [id number]) Speech Pathology Treatment Note Session Time Visit Start Time 09:30 Visit Stop Time 10:15 Total Visit Minutes 45 Visit Information Visit Number 4 Plan of Care Dates 04/15/19 - 04/24/19 Insurance Information [facility] Setting Treatment Setting Outpatient Care Visit Type Note Type Progress Note General Information General Information This now 59-yr-old female has a 7-month history of swallow difficulties including globus sensation and unintentional weight loss of 35 lbs. She has diagnosis of GERD and has been following a strict GERD diet and taking Dexilant (PPI) daily, which she states has been helpful but has not relieved all symptoms. The pt underwent endoscopy in April 2018, revealing esophageal inflammation. Following the endoscopy, she was diagnosed with pneumonia. The pt was also seen by ENT who performed flexible endoscopy and observed irritation and inflammation of the vocal folds. Finally, the pt underwent Modified Barium Swallow Study on 07/06/18 at [facility], which revealed mild oropharyngeal dysphagia characterized by mildly reduced epiglottic inversion, pharyngeal stripping wave, and UES opening, allowing mild pharyngeal residue. The pt reported today that she frequently feels posterior escape of bolus prior to swallow onset, which was observed in video review of MBSS. Following MBSS, the pt was recommended regular diet texture and thin liquids with compensatory strategies ( double swallow, small bites/ sips, alternate liquids/solids ) and outpatient dysphagia therapy to increase strength of swallow musculature. Voice therapy was also recommended to address reduced vocal quality secondary to GERD. Subjective Observations/Patient Presentation The pt returns for follow up after MBS performed 04/13/18. She was last seen for outpatient treatment in December, requiring delay in treatment to recover from a surgery in January. MBSS was postponed until the pt was sufficiently recovered from surgery to tolerate the procedure. She has been in phone communication with me over this time and had continued following dysphagia HEP. MBS revealed nearly normal swallow with no penetration or aspiration and minimal pharyngeal residue, particularly with liquids and soft solids, which the pt self -managed with dry swallows as needed. See dedicated WINDOW INSTALLATION SUBCONTRACTOR and Radiologist reports for further details. Chief Complaint(s) Swallowing Rehab Expectation/Goals: Patient Goals Normalize swallow function Patient Knowledge/Awareness of WINDOW INSTALLATION SUBCONTRACTOR Role Excellent in Treatment Patient/Caregiver Compliance with Home Excellent Exercise Program Objective Short Term Goals 1. The pt will perform compensatory swallow strategies independently to decrease discomfort with swallow. GOAL MET 2. The pt will perform exercises to increase strength , coordination and ROM of swallow musculature and efficiency of swallow in order to reduce discomfort and maintain airway protection during oral intake. GOAL MET Residential Goals 3. The pt will tolerate regular diet and thin liquids without s/sx of aspiration. GOAL MET 4. The pt will report comfort and confidence with oral intake WNL. GOAL MET Treatment Activities Education provided to pt RE MBS results including review of MBS video and comparison to MBS video obtained in June 2018. Significant improvement was observed, and the pt verbalized understanding of previous deficits compared to current function. The pt was able to observe osteophytes at C4-5, C5-6, and C6-7, which appear to contribute to minimal pharyngeal residue at pyriform sinuses. The pt had questions related to osteophytes, which were answered to the best of the clinician's ability. She verbalized understanding that the osteophytes do not significantly impede bolus flow and therefore do not present major concern at this time, and any questions unanswered by the clinician should be discussed with her PCP. The pt also observed minimal delay of barium tablet to pass through LES (passed with subsequent sip of water). Educated pt on possible referred vagus nerve sensation from esophagus to pharynx, when sensing a sticking in her throat that may actually be occurring in esophagus. Informed that observations did not warrant referral to GI; however, the pt does have concerns of GERD and expressed desire to work with a specialist to assist with this . This clinician is in agreement. The pt requested copies of MBS reports (WINDOW INSTALLATION SUBCONTRACTOR and Radiologist) be sent to her doctors, Dr. Campbell (GI) and Dr Carolee Grant (PCP) and signed Release of Information. WINDOW INSTALLATION SUBCONTRACTOR agreed to this. Discussed POC and recommended pt continue with swallow exercises to maintain or continue to improve function. Recommend dc from dysphagia therapy at this time. Pt is in agreement. Assessment Patient Response to Treatment Excellent Rehab Potential Excellent Impairments Identified Dysphagia Progress Towards Goals Excellent Progress Assessment of Overall Progress Improving Assessment of Improvement Over the course of treatment, the pt has significantly improved swallow function, as measured by MBSS and pt reports, and has met all goals . MBSS reveals more timely swallow trigger and consistent airway closure, which reduces risk of aspiration. Pharyngeal residue, while minimally present, is improved , and the pt reports decreased sticking sensation in throat, coughing, and other discomfort with oral intake. She did exhibit, under x-ray, the presence of osteophytes which contribute to minimal pharyngeal residue but do not significantly impact bolus flow and are not deemed to be detrimental to function at this time. The pt has been compliant and independent with HEP and demonstrated excellent understanding of all topics discussed, including original deficits and improvement, aspiration risks and precautions. She is appropriate for discharge from skilled intervention at this time. Reviewed with Patient Goals,Progress Being Made,Home Exercise Program Patient/Caregiver Understanding Excellent Plan Amount of Therapy Recommended No Further Therapy Therapeutic Contents Client Education,Home Exercise Program,Swallowing/Feeding Provided Patient/Caregiver Instruction Home Exercise Program,Plan of Care,Questions/Concerns Therapy Recommendations Continue with Current Program Suggested Referral GI
== END 2019-04-23 08:32 ==
LOC: SP 09:30
PROVIDERS: PCP Physician Assistant; Visit Provider Physician Assistant
DX: R13.10 Dysphagia, unspecified (principal); R68.89 Other general symptoms and signs; F41.9 Anxiety disorder, unspecified; R07.89 Other chest pain
CPT/HCPCS: 92526; 92610

== ENCOUNTER → 2019-12-04 14:41 | Outpatient (CLI) | payer OTHER, SELFPAY ==
--- NOTE | 2019-12-04 | DI.MG.S_ITS ---
BILATERAL DIGITAL SCREENING MAMMOGRAM 3D/2D WITH CAD WITH AUGMENTATION: 12/04/2019 CLINICAL: Routine screening. Comparison is made to exams dated: 12/01/2018 mammogram, 02/12/2017 mammogram, and 11/22/2015 mammogram - [facility]. The tissue of both breasts is heterogeneously dense. This may lower the sensitivity of mammography. Current study was also evaluated with a Computer Aided Detection (CAD) system. There is a focal asymmetry in the right breast at 7 o'clock posterior depth. No other significant masses, calcifications, or other findings are seen in either breast. IMPRESSION: INCOMPLETE: NEEDS ADDITIONAL IMAGING EVALUATION The focal asymmetry in the right breast is indeterminate. Additional views with possible ultrasound are recommended. This exam was interpreted at Station ID: [id number]. NOTE: For mammograms, a report in lay terms will be sent to the patient. Approximately 15% of breast malignancies will not be visualized mammographically. In the management of a palpable breast mass, a negative mammogram must not discourage biopsy of a clinically suspicious lesion. Electronically Signed By: Swati mckeon/:12/05/2019 16:18:44 letter sent: Additional Imaging Needed ACR BI-RADS Category 0: Incomplete [id number]
== END ==
PROVIDERS: PCP Family Medicine; Referring Provider Family Medicine; Visit Provider Family Medicine
DX: Z12.31 Encounter for screening mammogram for malignant neoplasm of breast (principal)
CPT/HCPCS: 77063; 77067

== ENCOUNTER → 2019-12-23 08:04 | Outpatient (CLI) | payer OTHER, SELFPAY ==
[2019-12-23 08:35] LABS: Add Manual Diff / Slide Review NO; Basophils Absolute Auto 0 /uL (0-100); Basophils Percent Auto 0.2 % (0-2); Eosinophils Absolute Auto 100 /uL (0-450); Eosinophils Percent Auto 1.2 % (2-4); Hematocrit 43.5 % (36-46); Hemoglobin 14.6 g/dL (12.0-16.0); Lymphocytes Absolute Auto 2600 /uL (1100-4500); Lymphocytes Percent Auto 44.1 % (25-40); Mean Corpuscular HGB Conc 33.4 % (30-36); Mean Corpuscular Hemoglobin 28.5 PG (26-34); Mean Corpuscular Volume 85.2 fL (80-100); Monocytes Absolute Auto 400 /uL (0-900); Monocytes Percent Auto 7.4 % (3-14); Neutrophils Absolute Auto 2800 /uL (1500-7000); Neutrophils Percent Auto 47.1 % (50-75); Platelet Count 206 X10^3/uL (150-400); Red Blood Cell Count 5.11 X10^6/uL (4.0-5.2); Red Cell Distribution Width 13.5 % (11.6-14.8)
[2019-12-23 09:21] LABS: Alanine Aminotransferase 28 IU/L (<35); Albumin 4.2 g/dL (3.5-5.0); Albumin Globulin Ratio 1.5 (1.0-2.8); Alkaline Phosphatase 76 U/L (38-126); Aspartate Aminotransferase 30 IU/L (14-36); BUN Creatinine Ratio 15.5 (6-22); Bilirubin Total 0.4 mg/dL (0.2-1.3); Blood Urea Nitrogen 9 mg/dL (7-17); Calcium 9.2 mg/dL (8.4-10.2); Carbon Dioxide 30 mmol/L (22-32); Chloride 106 mmol/L (98-107); Cholesterol 247 mg/dL (140-199); Estimated Glomerular Filt Rate > 60.0 mL/min (>60); Free T3, Triiodothyronine Free 3.13 pg/mL (2.77-5.27); Free T4, Direct Thyroxine 1.07 ng/dL (0.78-2.19); Globulin 2.8 g/dL (1.7-4.1); Glucose 99 mg/dL (70-100); HDL Cholesterol 54 mg/dL (40-60); HEMOLYSIS < 15 (0-50); LDL Cholesterol Calculated 172 mg/dL (<100); Sodium 141 mmol/L (137-145); Triglycerides 106 mg/dL (35-150)
[2019-12-23 09:35] LABS: Thyroid Stimulating Hormone 2.36 uIU/mL (0.47-4.68)
== END ==
PROVIDERS: PCP Family Medicine; Referring Provider Nurse Practitioner; Visit Provider Nurse Practitioner
DX: E78.5 Hyperlipidemia, unspecified (principal); F41.9 Anxiety disorder, unspecified; R00.2 Palpitations; Z00.00 Encounter for general adult medical examination without abnormal findings
CPT/HCPCS: 36415; 80053; 80061; 84439; 84443; 84481; 85025

== ENCOUNTER → 2019-12-24 11:21 | Outpatient (CLI) | payer OTHER, SELFPAY ==
[2019-12-28 17:08] LABS: Fecal Immunochemical Test Negative (Negative)
== END ==
PROVIDERS: PCP Family Medicine; Referring Provider Nurse Practitioner; Visit Provider Nurse Practitioner
DX: Z12.11 Encounter for screening for malignant neoplasm of colon (principal)
CPT/HCPCS: 82274

== ENCOUNTER → 2020-03-14 11:22 | Outpatient (CLI) | payer OTHER, SELFPAY | PROVIDERS: PCP Nurse Practitioner; Referring Provider Nurse Practitioner; Visit Provider Registered Nurse Diabetes Educator | DX: Z01.810 Encounter for preprocedural cardiovascular examination (principal) | CPT/HCPCS: 93005; 93010 ==

== ENCOUNTER → 2020-03-17 10:27 | Outpatient (CLI) | payer OTHER, SELFPAY ==
[2020-03-17 11:00] LABS: Add Manual Diff / Slide Review NO; Basophils Absolute Auto 0 /uL (0-100); Basophils Percent Auto 0.3 % (0-2); Eosinophils Absolute Auto 0 /uL (0-450); Eosinophils Percent Auto 0.5 % (2-4); Hemoglobin 14.5 g/dL (12.0-16.0); Lymphocytes Absolute Auto 3100 /uL (1100-4500); Lymphocytes Percent Auto 39.8 % (25-40); Mean Corpuscular HGB Conc 33.7 % (30-36); Mean Corpuscular Hemoglobin 28.6 PG (26-34); Mean Corpuscular Volume 84.8 fL (80-100); Monocytes Absolute Auto 500 /uL (0-900); Monocytes Percent Auto 6.5 % (3-14); Neutrophils Absolute Auto 4100 /uL (1500-7000); Neutrophils Percent Auto 52.9 % (50-75); Platelet Count 213 X10^3/uL (150-400); Red Blood Cell Count 5.07 X10^6/uL (4.0-5.2); Red Cell Distribution Width 13.5 % (11.6-14.8); White Blood Cell Count 7.8 X10^3/uL (4.5-11.0)
[2020-03-17 11:19] LABS: Alanine Aminotransferase 25 IU/L (<35); Albumin 4.3 g/dL (3.5-5.0); Albumin Globulin Ratio 1.4 (1.0-2.8); Alkaline Phosphatase 63 U/L (38-126); Aspartate Aminotransferase 30 IU/L (14-36); BUN Creatinine Ratio 21.7 (6-22); Bilirubin Total 0.3 mg/dL (0.2-1.3); Blood Urea Nitrogen 13 mg/dL (7-17); Calcium 9.2 mg/dL (8.4-10.2); Carbon Dioxide 31 mmol/L (22-32); Chloride 104 mmol/L (98-107); Estimated Glomerular Filt Rate > 60.0 mL/min (>60); Glucose 108 mg/dL (80-110); HEMOLYSIS < 15 (0-50); Potassium 3.9 mmol/L (3.4-5.1); Sodium 139 mmol/L (137-145); Total Protein 7.3 g/dL (6.3-8.2)
== END ==
PROVIDERS: PCP Nurse Practitioner; Referring Provider Nurse Practitioner; Visit Provider Nurse Practitioner
DX: Z01.818 Encounter for other preprocedural examination (principal)
CPT/HCPCS: 36415; 80053; 85025

== ENCOUNTER → 2020-04-03 15:45 | Outpatient (CLI) | payer OTHER, SELFPAY ==
--- NOTE | 2020-04-03 | DI.US.S_ITS ---
PROCEDURE: US PELVIC COMPLETE INDICATIONS: Postmenopausal bleeding TECHNIQUE: Real-time scanning was performed of the pelvic organs, with image documentation. Additional endovaginal scanning was necessary due to incomplete visualization of the adnexal and endometrial structures by transabdominal scanning. COMPARISON: [facility], , PELVIC COMPLETE, 05/01/2016, 11:12. FINDINGS: Uterus: Uterus is normal in size at 6.3 x 2.9 x 4.6 cm. The endometrium measures 3 mm in combined thickness. Previously seen cervical calcifications appear less prominent. Ovaries: The right ovary measures 1.3 x 1.0 x 0.9 cm. The left ovary measures 2.3 x 1.5 x 1.3 cm. Vascular flow is seen to both ovaries. Other: No pathologic free abdominal or pelvic fluid. IMPRESSION: Pelvic ultrasound is within normal limits. Endometrial echo complex is 3 mm in thickness. Dictated by: Misha Holly M.D. on 04/03/2020 at 16:54 Approved by: Misha Holly M.D. on 04/03/2020 at 16:57
== END ==
PROVIDERS: PCP Nurse Practitioner Family; Referring Provider Nurse Practitioner Family; Visit Provider Nurse Practitioner Family
DX: N95.0 Postmenopausal bleeding (principal)
CPT/HCPCS: 76830; 76856

== ENCOUNTER → 2021-07-13 08:44 | Outpatient (CLI) | payer OTHER, SELFPAY ==
--- NOTE | 2021-07-13 | DI.MG.S_ITS ---
BILATERAL DIGITAL DIAGNOSTIC MAMMOGRAM 3D/2D: 07/13/2021 CLINICAL: Late Short term follow up of the right breast. Due bilat. Family history of breast cancer. Comparison is made to exams dated: 12/09/2019 ultrasound, 12/09/2019 mammogram - [facility], 12/04/2019 mammogram, and 12/01/2018 mammogram - [facility]. The tissue of both breasts is heterogeneously dense. This may lower the sensitivity of mammography. The previously described focal asymmetry in the right breast at 7 o'clock posterior depth is no longer seen. This was not seen on the prior ultrasound. No other significant masses, calcifications, or other findings are seen in either breast. IMPRESSION: BENIGN There is no mammographic evidence of malignancy. Return to annual mammogram screening schedule is recommended. Findings and recommendations were conveyed to the patient during today's evaluation. This exam was interpreted at Station ID: [id number]. NOTE: For mammograms, a report in lay terms will be sent to the patient. Approximately 15% of breast malignancies will not be visualized mammographically. In the management of a palpable breast mass, a negative mammogram must not discourage biopsy of a clinically suspicious lesion. Electronically Signed By: Trevor Ellington M.D. aty/:07/13/2021 10:01:34 letter sent: Normal Exam ACR BI-RADS Category 2: Benign Finding(s) 3342F
== END ==
PROVIDERS: PCP Family Medicine; Referring Provider Family Medicine; Visit Provider Family Medicine
DX: R92.8 Other abnormal and inconclusive findings on diagnostic imaging of breast (principal); Z80.3 Family history of malignant neoplasm of breast
CPT/HCPCS: 77066; G0279

== ENCOUNTER → 2021-08-29 11:38 | Outpatient (CLI) | payer OTHER, SELFPAY ==
--- NOTE | 2021-08-29 11:45 | DI.RAD.S_ITS ---
PROCEDURE: XR FOOT RT MIN 3V INDICATIONS: Foreign body granuloma of the skin and subcutaneous tissue TECHNIQUE: 3 views of the foot were acquired. COMPARISON: None. FINDINGS: Bones: No fractures or dislocations. No suspicious bony lesions. Dorsal and plantar calcaneal bone spurs. Mild midfoot osteoarthritis. Soft tissues: No tibiotalar joint effusion. Achilles tendon appears normal. No radiodense foreign body identified in the soft tissues. IMPRESSION: No radiodense foreign bodies identified in the soft tissues. Dictated by: Mandi Narayanan MD, PhD on 08/29/2021 at 13:42 Approved by: Mandi Narayanan MD, PhD on 08/29/2021 at 13:52
--- NOTE | 2021-08-29 11:45 | DI.RAD.S_ITS ---
PROCEDURE: XR FOOT LT MIN 3V INDICATIONS: Foreign body granuloma of the skin and subcutaneous tissue TECHNIQUE: 3 views of the foot were acquired. COMPARISON: None. FINDINGS: Bones: No fractures or dislocations. No suspicious bony lesions. Dorsal and plantar calcaneal bone spurs. Mild midfoot osteoarthritis. Soft tissues: No tibiotalar joint effusion. Achilles tendon appears normal. No radiodense foreign bodies identified in the soft tissues. Heterotopic calcification noted adjacent to the medial margin of the 1st metatarsal. IMPRESSION: No radiodense foreign bodies identified in the soft tissues. Dictated by: Mandi Narayanan MD, PhD on 08/29/2021 at 13:40 Approved by: Mandi Narayanan MD, PhD on 08/29/2021 at 13:41
== END ==
PROVIDERS: PCP Family Medicine; Referring Provider Family Medicine; Visit Provider Family Medicine
DX: L92.3 Foreign body granuloma of the skin and subcutaneous tissue (principal)
CPT/HCPCS: 73630

== ENCOUNTER → 2021-11-01 10:13 | Outpatient (CLI) | payer OTHER, SELFPAY ==
--- NOTE | 2021-11-01 10:15 | DI.CT.S_ITS ---
PROCEDURE: CT FOOT LEFT WITHOUT CON INDICATIONS: Laceration with foreign body, L R foot, sequela TECHNIQUE: Noncontrast 1-1.5 mm axial sections acquired from above the tibiotalar joint to the bottom of the calcaneus, with coronal and sagittal reformats. COMPARISON: [facility], CR, XR FOOT LT MIN 3V, 08/29/2021, 11:50. [facility], CR, XR FOOT RT MIN 3V, 08/29/2021, 11:52. [facility], CR, XR FOOT 3 VIEWS WEIGHT BEARING BILATERAL, 10/10/2021, 10:11. FINDINGS: Image quality: Excellent. Bones: Alignment of left foot and ankle is anatomic. No fracture or dislocation. No suspicious intraosseous lesion. Mild osteoarthritic changes are seen throughout left foot with joint space narrowing, subchondral sclerosis and small marginal osteophyte formation. Well-defined plantar and dorsal calcaneal enthesophytes are seen. No gross bony erosive changes are noted. Soft tissues: There is no radiopaque foreign bodies. No full-thickness tendon rupture. No abnormal soft tissue calcifications or significant joint effusion. No discrete drainable fluid collection is noted. IMPRESSION: 1. Mild left foot joint osteoarthritis. No fracture or dislocation. No suspicious bony lesion. No gross bony erosive changes. Calcaneal enthesophytes. 2. No gross left foot soft tissue abnormality is seen. No radiopaque foreign bodies. No drainable fluid collection or soft tissue mass. No full-thickness tendon rupture. Dictated by: Herbie Flannery M.D. on 11/01/2021 at 11:54 Approved by: Herbie Flannery M.D. on 11/01/2021 at 12:25
--- NOTE | 2021-11-01 10:15 | DI.CT.S_ITS ---
PROCEDURE: CT FOOT RIGHT WITHOUT CON INDICATIONS: Laceration with foreign body, L R foot, sequela TECHNIQUE: Noncontrast 1-1.5 mm axial sections acquired from above the tibiotalar joint to the bottom of the calcaneus, with coronal and sagittal reformats. COMPARISON: [facility], CR, XR FOOT RT MIN 3V, 08/29/2021, 11:52. [facility], CR, XR FOOT 3 VIEWS WEIGHT BEARING BILATERAL, 10/10/2021, 10:11. FINDINGS: Image quality: Excellent. Bones: Osteoarthritic changes are noted throughout right foot more prominent at 1st MTP joint with joint space narrowing, subchondral sclerosis and marginal osteophyte formation. No right foot fracture or dislocation. No suspicious intraosseous lesion or bony erosive changes. Well-defined plantar and dorsal calcaneal enthesophytes are seen. Soft tissues: There is no radiopaque foreign bodies. No suspicious soft tissue mass or fluid collection. No gross full-thickness tendon rupture. No significant joint effusion or intra-articular loose bodies. IMPRESSION: 1. Right foot osteoarthritis. No fracture or dislocation. No CT evidence of osteomyelitis. No suspicious bony lesion. Calcaneal enthesophytes. 2. No radiopaque foreign body is seen. No soft tissue mass or fluid collection. No full-thickness tendon rupture. Dictated by: Herbie Flannery M.D. on 11/01/2021 at 12:26 Approved by: Herbie Flannery M.D. on 11/01/2021 at 12:38
== END ==
PROVIDERS: PCP Family Medicine; Referring Provider Family Medicine; Visit Provider Family Medicine
DX: S91.3 Open wound of foot (principal); M19.072 Primary osteoarthritis, left ankle and foot; M19.071 Primary osteoarthritis, right ankle and foot; M25.775 Osteophyte, left foot
CPT/HCPCS: 73700

== ENCOUNTER → 2022-07-15 10:06 | Outpatient (CLI) | payer OTHER, SELFPAY ==
--- NOTE | 2022-07-15 | DI.MG.S_ITS ---
BILATERAL DIGITAL SCREENING MAMMOGRAM 3D/2D WITH CAD: 07/15/2022 CLINICAL: Routine screening. Family history of breast cancer. Comparison is made to exams dated: 07/13/2021 mammogram, 12/04/2019 mammogram - [facility], 12/09/2019 mammogram - [facility], and 12/01/2018 mammogram - [facility]. Both breasts are heterogeneously dense, which may obscure small masses (category c / 51-75% glandular tissue). Current study was also evaluated with a Computer Aided Detection (CAD) system. There are benign post operative findings in both breasts. No significant masses, calcifications, or other findings are seen in either breast. There has been no significant interval change. IMPRESSION: BENIGN There is no mammographic evidence of malignancy. A 1 year screening mammogram is recommended. Based on the Tyrer Cuzick model (a risk assessment model) the patient's lifetime risk is 10.7% and her 10 year risk is 4.6%. According to the ACR, ACS, and NCCN guidelines, an annual breast MRI exam along with mammogram is recommended if the patient's lifetime risk is 20% or greater. This exam was interpreted at Station ID: [id number]. NOTE: For mammograms, a report in lay terms will be sent to the patient. Approximately 15% of breast malignancies will not be visualized mammographically. In the management of a palpable breast mass, a negative mammogram must not discourage biopsy of a clinically suspicious lesion. Electronically Signed By: Swati [email or web address]:07/15/2022 11:11:12 letter sent: Normal Exam ACR BI-RADS Category 2: Benign Finding(s) 3342F
== END ==
PROVIDERS: PCP Family Medicine; Referring Provider Family Medicine; Visit Provider Family Medicine
DX: Z12.31 Encounter for screening mammogram for malignant neoplasm of breast (principal)
CPT/HCPCS: 77063; 77067

== ENCOUNTER → 2024-02-10 09:53 | Outpatient (CLI) | payer OTHER, SELFPAY ==
--- NOTE | 2024-02-10 09:56 | DI.MG.S_ITS ---
BILATERAL DIGITAL SCREENING MAMMOGRAM 3D/2D WITH CAD: 02/10/2024 CLINICAL: Routine screening. Family history of breast cancer. Comparison is made to exams dated: 07/15/2022 mammogram, 07/13/2021 mammogram - [facility], 12/09/2019 mammogram - [facility], and 12/04/2019 mammogram - [facility]. The breasts are heterogeneously dense, which may obscure small masses (category c / 51-75% glandular tissue). Current study was also evaluated with a Computer Aided Detection (CAD) system. There are benign post operative findings in both breasts. No significant masses, calcifications, or other findings are seen in either breast. There has been no significant interval change. IMPRESSION: BENIGN There is no mammographic evidence of malignancy. A 1 year screening mammogram is recommended. Based on the Tyrer Cuzick model (a risk assessment model) the patient's lifetime risk is 10.0% and her 10 year risk is 4.7%. According to the ACR, ACS, and NCCN guidelines, an annual breast MRI exam along with mammogram is recommended if the patient's lifetime risk is 20% or greater. This exam was interpreted at Station ID: [id number]. NOTE: For mammograms, a report in lay terms will be sent to the patient. Approximately 15% of breast malignancies will not be visualized mammographically. In the management of a palpable breast mass, a negative mammogram must not discourage biopsy of a clinically suspicious lesion. Electronically Signed By: Misha [email or web address]/lake:02/10/2024 15:05:19 letter sent: Normal Exam ACR BI-RADS Category 2: Benign
== END ==
PROVIDERS: PCP Family Medicine; Referring Provider Family Medicine; Visit Provider Family Medicine
DX: Z12.31 Encounter for screening mammogram for malignant neoplasm of breast (principal); Z80.3 Family history of malignant neoplasm of breast; R92.333 Mammographic heterogeneous density, bilateral breasts
CPT/HCPCS: 77063; 77067